=== PATIENT | female | born 1935 | race Caucasian/White ===

== ENCOUNTER 2018-05-12 11:40 | Inpatient (IN) | payer MEDICARE, OTHER ==
[2018-05-12 12:48] LABS: Hemoglobin 13.6 g/dL (12.0-16.0); Mean Corpuscular HGB CONC 32.9 g/dL (32.0-36.0); Mean Corpuscular Hemoglobin 35.4 pg (27.0-31.0); Platelet Count 333 thou/uL (130-400); Red Blood Cell (RBC) Count 3.83 mill/uL (4.20-5.40); White Blood Cell (WBC) Count 9.3 thou/uL (4.8-10.8)
--- NOTE | 2018-05-12 12:55 | RAD ---
CHEST 1 VIEW: HISTORY: An 83-year-old female with a history of cough and hypotension, chest congestion, low O2 saturation. FINDINGS: There appears to be some minimal dextrocardia suggesting some right-sided volume loss. Abnormal opac ity changes are noted over the right mid and lower chest, probably a combination of pleural and paren chymal opacity. Small left pleural effusion. Heart size is borderline. The left lung demonstrates no significant acute process in the mid and upper left chest. IMPRESSION: Fairly extensive abnormal opacity changes in the right chest with what appears to be some associated volume loss raising concern for pneumonia and/or atelectasis. Left pleural effusion changes with jann e minimal horizontal parenchymal changes in the left lower lobe. The upper lung zones appear clear. Consider followup chest CT scan for further assessment. POS: [place]
[2018-05-12 13:03] LABS: ALT (SGPT) 10 U/L (8-55); AST (SGOT) 14 U/L (5-34); Albumin 3.3 g/dL (3.4-4.8); Alkaline Phosphatase 87 U/L (40-150); Anion Gap 18 mmol/L (10-20); BUN (Urea Nitrogen) 12 mg/dL (9.8-20.1); Bilirubin, Total 1.1 mg/dL (0.2-1.2); Calc. Creatinine Clearance 0 mL/min (70-130); Carbon Dioxide 18 mmol/L (23-31); Chloride 105 mmol/L (98-107); Estimated GFR-MDRD 67; Globulin 3.4 g/dL (2.4-3.5); Glucose 151 mg/dL (83-110); Lipase 7 U/L (8-78); Potassium 3.4 mmol/L (3.5-5.1); Protein, Total 6.7 g/dL (6.0-8.3); Sodium 138 mmol/L (136-145)
[2018-05-12] MEDS ORDERED: Ondansetron PF 4 MG/2 ML Vial ONE (13:09)
[2018-05-12 13:13] LABS: Band 4 % (5-11); Lymphocytes 6 % (21-51); MDiff Complete? YES; Monocytes 6 % (0-10); Neutrophil 83 % (42-75); Platelet Morphology Comment Appears Adequate; Reactive Lymphocytes 1 % (0-10)
[2018-05-12] MEDS ORDERED: Diltiazem 125 MG/25 ML ONE (14:38)
--- NOTE | 2018-05-12 15:06 | CT ---
CT ANGIOGRAM CHEST WITH 3D RENDERING: HISTORY: An 83-year-old female with a history of nausea, vomiting, cough, and congestion. COMPARISON: Prior chest CT scan from 01/06/2012. FINDINGS: No central pulmonary artery thrombosis. Some of the more peripheral branches, particularly in the lo wer lobes, are somewhat less than optimally imaged, but no convincing CT evidence for acute pulmonary embolism. There is very extensive, diffuse increase in the pericardial fat, including the intraatri al septum, but with fat measuring approximately 1.8 cm overlying the right atrium and approximately 2 .4 cm thick pericardial fat at the level of the ascending aorta. There is some minimal pericardial f luid noted, up to 1 cm in thickness. There are increased interstitial and reticulonodular parenchyma l changes scattered in the right upper lobe with what is probably some minimal atelectasis. There is moderate atelectasis of the right middle lobe with some pleural-based parenchymal changes. Heteroge neous similar changes are noted in both lung bases, which has more of a chronic appearance. Small le ft pleural effusion, decreased in size from the prior 2011 study. Improved left lower lobe parenchym al changes when compared to the prior study. No evidence for aortic aneurysm. Extensive three-vesse l coronary artery calcific disease. Diffuse bony demineralization. Status post cholecystectomy. No dularity of both adrenal glands, nonspecific but possibly bilateral adrenal adenomas. Fatty replacem ent of the pancreas. Small, nodular polysplenia. When compared to the prior 01/06/2012 study, the a mount of pericardial fat has definitely increased from that time, and the heart has a more dextrocard iac appearance on today's study than on that prior exam. IMPRESSION: 1. No convincing CT evidence for acute pulmonary embolism. 2. Very prominent thickened diffuse pericardial fat, completely surrounding the heart, showing defin ite worsening from 01/06/2012. 3. Pericardial effusion, up to 1 cm in maximal thickness. 4. Small left pleural effusion. 5. Patchy nonspecific parenchymal changes, including the right upper lobe, right middle lobe, right lower lobe, and left lower lobe, which could well represent some atypical pneumonia or pneumonitis. I feel some of the changes in the right middle lobe and even portions of the right upper lobe represe nt some compressive atelectasis from the enlargement of the cardiac silhouette and the dextrocardia p ositioning of the heart. 6. Extensive three-vessel coronary artery calcific disease. 7. Evidence for polysplenia. 8. Fatty replaced pancreas. 9. Multiple small, low attenuation nodules within both right and left adrenal glands, nonspecific bu t possibly multiple adenomas. 10. Old granulomatous disease within the right lung. 11. Small, nonobstructing left renal calculi. 12. Indeterminate, 0.6 cm in diameter, exophytic mass off the upper pole of the right kidney, t oo small to characterize on this study. 13. Other findings as above. POS: [place]
[2018-05-12] MEDS ORDERED: Potassium Chloride 20 MEQ TAB ONE (16:32)
[2018-05-12 16:58] LABS: Lactic Acid 1.8 mmol/L (0.5-2.2)
[2018-05-12] MEDS ORDERED: Iopamidol 370 76% 100 ML VIAL ONE (17:03)
[2018-05-12 17:05] LABS: Troponin I 0.069 ng/mL (< 0.028)
[2018-05-12 18:37] LABS: Bilirubin Small (Negative); Blood, Urine Moderate (Negative); Clarity CLEAR (Clear); Glucose, Urine (Dipstick) Negative (Negative); Leukocyte Negative (Negative); Nitrite Negative (Negative); Protein, Urine (Dipstick) Trace mg/dL (Neg-Trace)
[2018-05-12 18:39] LABS: Bacteria/HPF None Seen HPF (None Seen); Squamous Epithelial 0-3 HPF (0-3); WBC/HPF 0-3 HPF (0-3)
[2018-05-12 18:42] LABS: Pathc Cast-AUWi Flag 2.76 (0-2.49)
[2018-05-12 18:43] LABS: Hyaline Casts/LPF 0-3 HYALINE CAST LPF (0-3 Hyaline); Manual Microscopic Reviewed? No Path Casts Seen; Specific Gravity, Urine Greater than 1.060 (1.002-1.036)
[2018-05-12 19:18] LABS: Troponin I 0.071 ng/mL (< 0.028)
[2018-05-12] MEDS ORDERED: Diltiazem HCl 125 MG, Admixture Fee 1 EACH in Sodium Chloride 0.9% 100 ML IVPB SCH (21:30)
[2018-05-12] MEDS ORDERED: Sodium Chloride 0.9% 1,000 ML IV SCH (21:30)
--- NOTE | 2018-05-12 22:56 | HP ---
CHIEF COMPLAINT: Cough and low blood pressure. HISTORY OF PRESENT ILLNESS: The patient is an 83-year-old female, who checked her blood pressure at home, and it was read in the 80s systolic, and she went to the primary care doctor, who checked her blood pressure, it was 95/64, pulse was 97, and pulse oximetry was 94%. Physical examination at the doctor's office revealed some rattling according to the patient in her chest, and she was sent out to the emergency room for further evaluation. Apparently, she noticed some new onset of cough approximately a week ago. She did not really have any fever or chills, but from [id number], she was able to bring some yellowish phlegm. Apparently recently she went to [place], where her kids live, and she had some contact with a sick people out there. Her primary care physician is Dr. Maldonado and licensed psychologist manager, Dr. Seo. [id number] is her son, Francisco Blunt. PAST MEDICAL HISTORY: 1. Diverticulosis. 2. Atrial fibrillation, chronic. 3. Partial small-bowel obstruction. 4. Breast cancer of the left side. PAST SURGICAL HISTORY: 1. Hemicolectomy with re-anastomosis in 2009. 2. Radical mastectomy on the left. 3. Cholecystectomy. 4. Appendectomy. 5. Hysterectomy. 6. Splenectomy. 7. Colonoscopy. ALLERGIES: NONE. MEDICATIONS: 1. Xarelto 20 mg once a day. 2. Cardizem 120 mg once a day. 3. Losartan 50 mg once a day. FAMILY HISTORY: Mother of car accident at the age of 75 and father had CVA and , when he was 62. SOCIAL HISTORY: She used to smoke, but quit long time ago. She does not drink any alcohol recently and does not use any illicit drugs. ALLERGIES: NONE. REVIEW OF SYSTEMS: Denies fever and chills. Denies headaches, vision, or hearing change. Denies rash. Denies chest pain or palpitations. Denies incontinence. Has some congestion and cough. Denies syncope. Denies anxiety or depression. PHYSICAL EXAMINATION: VITAL SIGNS: Her blood pressure is 115/67, pulse is 101, pulse oximetry is 97%, and respiratory rate is 25. HEENT: Her head is atraumatic and normocephalic. Eyes are PERRLA. Sclerae are nonicteric. Oral mucosa is moist. NECK: Supple. No JVDs. LUNGS: Crackles at the right base. No wheezing. HEART: S1 and S2. Tachycardic, irregularly irregular. No S3. No S4. ABDOMEN: Soft, nontender, and nondistended. Bowel sounds are present. No organomegaly. EXTREMITIES: No clubbing, cyanosis, or edema. NEUROLOGICAL: Examination she is alert and oriented x4. There are no any motor or sensory deficits. Cranial nerves are intact. LABORATORY DATA: Labs showed a white count of 9.3, hemoglobin of 13.6, hematocrit 41.3, and platelet count 333,000. Chemistry shows sodium of 138, potassium 3.4, chloride 105, CO2 of 18, BUN of 12, creatinine 0.81, glucose 151, lactic acid 3.2, troponin 0.092, albumin 3.3, and lipase 67. DIAGNOSTIC STUDIES: Chest x-ray showed significant opacification of the right side of the chest, especially in the middle and the lower lobe. CTA of the chest showed no PE, significant worsening of the diffuse pericardial fat completely surrounding the heart, pericardial effusion up to 1 cm in maximal thickness, small left pleural effusion, patchy nonspecific parenchymal changes including the right upper lobe, right middle lobe, right lower lobe, and the left lower lobe, most likely atypical pneumonia or pneumonitis versus atelectasis. 1. Extensive three-vessel coronary artery calcification evidence. 2. Evidence of polysplenia. 3. Multiple small low-attenuation nodules within both right and left adrenal glands, nonspecific, most likely multiple adenomas. 4. Old granulomatous disease within the right lung. 5. Small non-obstructing left renal calculi. 6. Indeterminate 0.6 cm in diameter exophytic lesion in the upper pole of the right kidney, too small to characterize, will be characterized on this study. EKG showed this was personally reviewed by me. She is in atrial fibrillation with a ventricular rate of 140 beats per minute with some ischemic changes in the precordial leads, affecting ST-segment and T waves. Her QRS is very high and that is most likely reflecting changes seen on the CT of the chest, was going on with her heart. IMPRESSION: 1. New onset cough with clinical findings by auscultation is suggestive of infectious process in the right lung. We are going to start her on levofloxacin. 2. Atrial fibrillation, chronic with rapid ventricular response. She received two doses of 10 mg IV push of Cardizem, but her heart rate went down, then went up, and we had to start her on Cardizem drip 5 mg/hour. 3. Hypokalemia, replaced with 40 of KCl in the emergency room. 4. Elevated troponin at 0.092. We will have additional two sets of troponin I to follow up. Will hold her Xarelto since there is a severe interaction between Xarelto and Cardizem. I will continue her p.o. Cardizem tomorrow morning, and we will continue her Cardizem drip for now. We will get cardiology consultation, pulmonary consultation, so plan is as mentioned above, admission to telemetry floor. CONDITION: Fair. ACTIVITY: Bedrest and bathroom privileges. DIET: Heart healthy, IV Hep-Lock, Cardizem drip 5 mg/hour. Cardiology and pulmonary consultations with Dr. Ariza and Dr. Gutierrez respectively. Check her serial CBC and BMP and continue levofloxacin same antibiotic she was started in the emergency room and get echocardiogram since the CT of the chest shows significant changes of her heart. Also, she will need additional studies on her kidneys since there was some suspicion that maybe there was some growth on one of her kidneys. Job ID: [id number]
[2018-05-13] MEDS: Diltiazem HCl 125 MG, Admixture Fee 1 EACH in Sodium Chloride 0.9% 100 ML IVPB SCH ×2 (04:52→17:16)
[2018-05-13] MEDS: Sodium Chloride 0.9% 1,000 ML IV SCH ×3 (04:53→18:15)
[2018-05-13 05:03] LABS: Anion Gap 14 mmol/L (10-20); BUN (Urea Nitrogen) 10 mg/dL (9.8-20.1); Calc. Creatinine Clearance 73 mL/min (70-130); Calcium 9.2 mg/dL (7.8-10.44); Carbon Dioxide 22 mmol/L (23-31); Chloride 107 mmol/L (98-107); Estimated GFR-MDRD 90; Glucose 106 mg/dL (83-110); Potassium 3.6 mmol/L (3.5-5.1); Sodium 139 mmol/L (136-145)
[2018-05-13 08:59] LABS: #Eosinphils 0.1 thou/uL (0.0-0.7); #Lymphocytes 1.5 thou/uL (1.20-3.40); #Monocytes 2.4 thou/uL (0.11-0.59); #Neutrophils 12.7 thou/uL (1.40-6.50); %Basophils 0.3 % (0.0-1.0); %Eosinophils 0.6 % (0.0-10.0); %Monocytes 14.5 % (0.0-10.0); %Neutrophils 75.7 % (42.0-75.0); Hemoglobin 12.4 g/dL (12.0-16.0); Mean Corpuscular HGB CONC 32.7 g/dL (32.0-36.0); Mean Corpuscular Hemoglobin 34.5 pg (27.0-31.0); Mean Platelet Volume 7.3 fL (7.4-10.4); Platelet Count 273 thou/uL (130-400); Red Blood Cell (RBC) Count 3.58 mill/uL (4.20-5.40); White Blood Cell (WBC) Count 16.8 thou/uL (4.8-10.8)
--- NOTE | 2018-05-13 09:56 | CON ---
DATE OF CONSULTATION: 05/13/2018 CONSUTING PHYSICIAN: Jesus Mckeon MD from the [facility]. REASON FOR CONSULTATION: Pneumonia. The following encompassed 50 minutes of the time, of that time, greater than 50% was spent with the patient and/or the patient's unit in the hospital. HISTORY OF PRESENT ILLNESS: Ms. Blunt is a pleasant 83-year-old female, who presented yesterday from her primary care doctor's office, where she was found to be slightly hypotensive and hypoxic. Workup in the emergency room demonstrated a right-sided pneumonia on CT scan. She states she has been coughing over the last several days and bring up productive sputum. She has also had a subjective fever. She states that she feels better today compared to yesterday. PAST MEDICAL HISTORY: 1. Diverticulitis/diverticulosis. 2. Atrial fibrillation, which is chronic. 3. Small bowel obstructions for breast cancer. 4. Hypertension. PAST SURGICAL HISTORY: 1. Hemicolectomy with reanastomosis. 2. Left radical mastectomy. 3. Cholecystectomy. 4. Appendectomy. 5. Hysterectomy. 6. Splenectomy. 7. Colonoscopy. MEDICATIONS: Prior to admission; 1. Xarelto 20 mg daily. 2. Cardizem 120 mg daily. 3. Losartan 50 mg daily. FAMILY MEDICAL HISTORY: Mother of a car accident at age 75. Father had a stroke and at age 62. SOCIAL HISTORY: The patient quit smoking about 12 years ago when her . She does not drink alcohol. Does not use illicit drugs. ALLERGIES: NONE. REVIEW OF SYSTEMS: She has had some subjective fever and chills. No nausea or vomiting. No hematemesis, melena, or hematochezia. No hematuria. No dysuria. Remainder of 12-point review of systems is negative. PHYSICAL EXAMINATION: VITAL SIGNS: Temperature 98.1, pulse 126, respiratory rate 20, and blood pressure 111/71. She is currently on a Cardizem drip at 12.5 mg/hour. GENERAL: She is lying in bed. She is in no acute distress. HEENT: Pupils are reactive. Sclerae are icteric. Oropharynx is clear. NECK: Without adenopathy or JVD. LUNGS: She has some inspiratory crackles in the right base. Left side clear. CARDIAC: S1 and S2, irregularly irregular without murmur. ABDOMEN: Soft, nontender to palpation. EXTREMITIES: No clubbing, cyanosis, or edema. LABORATORY DATA: White blood cell count 9.3, hematocrit 41.3, and platelet count 333 with 84% neutrophils, 4% bands. Sodium 139, potassium 3.6, chloride 107, CO2 of 22, BUN 10, creatinine 0.6, and glucose 106. Troponin 0.07. IMAGING DATA: CT and chest x-ray were personally reviewed by myself. ASSESSMENT: 1. Right lower lobe pneumonia. 2. Extensive cardiomegaly with right-sided dilatation on CT scan. She also has a slight pericardial effusion and an extensive pericardial fat. RECOMMENDATIONS: 1. I agree with antibiotic regimen, continue Levaquin therapy as already started. 2. Rate control of atrial fibrillation. 3. Oxygen therapy as needed. Thank you for the referral. I will be happy to follow with you. Job ID: [id number]
[2018-05-14] MEDS: Sodium Chloride 0.9% 1,000 ML IV SCH ×2 (01:09→07:00)
[2018-05-14] MEDS: Diltiazem HCl 125 MG, Admixture Fee 1 EACH in Sodium Chloride 0.9% 100 ML IVPB SCH ×3 (02:45→23:57)
[2018-05-14 05:27] LABS: #Lymphocytes 1.4 thou/uL (1.20-3.40); #Monocytes 1.4 thou/uL (0.11-0.59); #Neutrophils 11.1 thou/uL (1.40-6.50); %Eosinophils 0.4 % (0.0-10.0); %Lymphocytes 9.9 % (21.0-51.0); %Monocytes 9.7 % (0.0-10.0); Hemoglobin 10.7 g/dL (12.0-16.0); Mean Corpuscular HGB CONC 32.6 g/dL (32.0-36.0); Mean Corpuscular Hemoglobin 34.9 pg (27.0-31.0); Mean Platelet Volume 6.4 fL (7.4-10.4); Platelet Count 320 thou/uL (130-400); RBC Distribution Width 12.9 % (11.5-14.5); Red Blood Cell (RBC) Count 3.06 mill/uL (4.20-5.40); White Blood Cell (WBC) Count 13.9 thou/uL (4.8-10.8)
[2018-05-14 05:45] LABS: Anion Gap 13 mmol/L (10-20); BUN (Urea Nitrogen) 9 mg/dL (9.8-20.1); Calc. Creatinine Clearance 74 mL/min (70-130); Carbon Dioxide 18 mmol/L (23-31); Chloride 112 mmol/L (98-107); Estimated GFR-MDRD Greater than 90; Glucose 106 mg/dL (83-110); Potassium 3.2 mmol/L (3.5-5.1); Sodium 140 mmol/L (136-145)
[2018-05-14] MEDS ORDERED: guaiFENesin/Dextromethorphan 10 ML UDCUP PO PRN (10:46)
[2018-05-14] MEDS ORDERED: Mag-Al 1200 mg/1200 mg/30 ML UDCUP PO PRN (10:46)
[2018-05-14] MEDS ORDERED: Potassium Chloride 20 MEQ TAB PO SCH (11:00)
[2018-05-14] MEDS ORDERED: Digoxin 0.5 MG/2 ML AMP SLOW IVP SCH (11:00)
--- NOTE | 2018-05-14 11:53 | PRG ---
DATE OF SERVICE: 05/14/2018 SUBJECTIVE: The patient is doing somewhat better than yesterday. She is complaining of cough and some abdominal indigestion. OBJECTIVE: VITAL SIGNS: Her temperature is 97.3, pulse 106, O2 saturation 94% on 2 L, blood pressure 147/78. HEENT: Unremarkable. NECK: No JVD. LUNGS: Few crackles at the bases. CARDIAC: S1, S2. Regular. ABDOMEN: Soft. EXTREMITIES: No edema. LABORATORY DATA: White blood cell count 13.9, hematocrit 32.8, and platelet count 320. Sodium 140, potassium 3.2, chloride 112, CO2 18, BUN 9, creatinine 0.6, glucose 106. ASSESSMENT: 1. Right lower lobe pneumonia. 2. Extensive cardiomegaly with small pericardial effusion by CT scan. RECOMMENDATIONS: She is continuing IV antibiotics. She may end up needing some diuresis. I will give her some antitussive medications she can use as needed. Job ID: [id number]
[2018-05-14] MEDS ORDERED: Non-Formulary Item 1 EACH (Rivaroxaban [Xarelto] 20 MG) PO SCH (21:00)
[2018-05-14] MEDS: Guaifenesin DM 100-10/5 ML UDCUP PO PRN (21:24)
[2018-05-14] MEDS: Rivaroxaban 10 MG TAB PO SCH (21:24)
[2018-05-15] MEDS ORDERED: Digoxin 0.5 MG/2 ML AMP SLOW IVP SCH ×2 (07:30→13:30)
[2018-05-15] MEDS: Guaifenesin DM 100-10/5 ML UDCUP PO PRN ×3 (08:18→21:41)
[2018-05-15] MEDS: Losartan 25 MG TAB PO SCH (08:21)
[2018-05-15] MEDS ORDERED: Furosemide 40 MG/4 ML VIAL SLOW IVP SCH (09:45)
[2018-05-15] MEDS ORDERED: Potassium Chloride 20 MEQ TAB PO SCH (09:45)
[2018-05-15 10:09] LABS: Hemoglobin 11.4 g/dL (12.0-16.0); Mean Corpuscular HGB CONC 32.6 g/dL (32.0-36.0); Mean Corpuscular Hemoglobin 34.8 pg (27.0-31.0); Mean Platelet Volume 6.5 fL (7.4-10.4); Platelet Count 342 thou/uL (130-400); Red Blood Cell (RBC) Count 3.29 mill/uL (4.20-5.40); White Blood Cell (WBC) Count 15.5 thou/uL (4.8-10.8)
[2018-05-15 10:26] LABS: Anion Gap 11 mmol/L (10-20); BUN (Urea Nitrogen) 6 mg/dL (9.8-20.1); Calc. Creatinine Clearance 83 mL/min (70-130); Calcium 9.8 mg/dL (7.8-10.44); Carbon Dioxide 25 mmol/L (23-31); Chloride 108 mmol/L (98-107); Estimated GFR-MDRD Greater than 90; Glucose 134 mg/dL (83-110); Magnesium 1.6 mg/dL (1.6-2.6); Potassium 3.3 mmol/L (3.5-5.1); Sodium 141 mmol/L (136-145)
--- NOTE | 2018-05-15 10:41 | PRG ---
DATE OF SERVICE: 05/15/2018 SUBJECTIVE: The patient still feels rather lousy. She has a cough. OBJECTIVE: VITAL SIGNS: Temperature 97.6, pulse 98, respirations 18, O2 saturation 94% on 3 L, and blood pressure 171/72. HEENT: Unremarkable. NECK: No JVD. LUNGS: Coarse breath sounds. CARDIAC: S1 and S2. Regular. ABDOMEN: Soft. EXTREMITIES: No edema. LABORATORY DATA: White blood cell count 15, hematocrit 35.1, and platelet count 242. Sodium 140 and potassium 3.2. ASSESSMENT: 1. Right lower lobe pneumonia. 2. Cardiomegaly with decreased ejection fraction. PLAN: 1. Continue IV antibiotics. 2. Up into a chair as tolerated. 3. I will ask PT to see her. Job ID: [id number]
[2018-05-15 11:29] LABS: Band 5 % (5-11); Lymphocytes 4 % (21-51); MDiff Complete? YES; Monocytes 4 % (0-10); Neutrophil 85 % (42-75); RBC Morphology Normal; Reactive Lymphocytes 2 % (0-10)
--- NOTE | 2018-05-15 13:28 | PRG ---
DATE OF SERVICE: 05/15/2018 SUBJECTIVE: The patient is seen and examined at the bedside. She seems to be more short of breath. She does not have any chest pain. There were no any unexpected events overnight. OBJECTIVE: VITAL SIGNS: Blood pressure is 107/72, pulse is 98, temperature is 97.6, respiratory rate is 18, O2 saturation is 94% on 3 L by nasal cannula. HEENT: Her head is atraumatic and normocephalic. Sclerae are nonicteric. Oral mucosa is moist. LUNGS: Bilateral rales and crackles present at both bases. HEART: S1 and S2. Irregularly irregular. No S3. No S4. ABDOMEN: Soft, nontender, and nondistended. EXTREMITIES: 1+ peripheral edema on both lower and upper extremities. NEUROLOGIC: She is alert and oriented x4. There are no any motor deficits. Cranial nerves are intact. LABORATORY DATA: Labs showed white count of 15.5, hemoglobin of 11.4, hematocrit 35.1, platelet count is 342. Sodium of 141, potassium 3.3, chloride 108, CO2 of 25, BUN 6, creatinine 0.59, glucose 134, calcium 9.8, and magnesium 1.6. Echocardiogram showed LVEF estimated at 65%, probably diastolic dysfunction. Difficult to assess since rhythm is irregular. Normal right ventricular size and function. The left atrium was [id number] dilated. The right atrium was mildly enlarged. There were mild mitral regurgitation and trace tricuspid regurgitation. IMPRESSION: 1. Right lower lobe pneumonia. 2. Diastolic congestive heart failure, [id number]. 3. Atrial fibrillation with rapid ventricular response. 4. Hypokalemia. We will replace. 5. Elevated troponin, probably just a demand ischemia. DISCUSSION: I am going to start her on Lasix 40 mg now, then twice a day since she received a lot of IV fluids and there is some diastolic dysfunction. We will replace her with KCl of 40 mEq. We will give her additional dose of digoxin. Yesterday, she received 0.25 mg of digoxin IV push. She slowed down to the 90s, but her rate went up to 120s to 130s often and will have additional 0.25 mg of digoxin this morning and will have Dr. Denise for Cardiology consultation. 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 The CT of the abdomen and pelvis showed indeterminate 0.6 cm in diameter exophytic lesion in the upper pole of the right kidney. It was too small to characterize, and this will need to be followed on outpatient basis. Also, there were small nonobstructing left renal calculi. Job ID: [id number]
[2018-05-15] MEDS: Diltiazem HCl 125 MG, Admixture Fee 1 EACH in Sodium Chloride 0.9% 100 ML IVPB SCH ×2 (14:01→21:42)
[2018-05-15] MEDS: Furosemide 40 MG/4 ML VIAL SLOW IVP SCH (14:16)
[2018-05-15] MEDS ORDERED: Ondansetron ODT 4 MG TAB PO SCH ×2 (14:45)
--- NOTE | 2018-05-15 17:18 | RAD ---
2 VIEWS ABDOMEN: Date: 05/15/18 COMPARISON: 01/13/12. HISTORY: Abdominal distention. FINDINGS: Supine and upright views of abdomen show air-filled loops of bowel throughout the abdomen. The majori ty of these appear to be colon. However, there are likely a few air-filled loops of small bowel. No f ree air is seen on upright examination. An anastomotic staple line is seen in the rectal region. IMPRESSION: Air-filled loops of bowel may represent large and small bowel. This may be secondary to an ileus or i ncomplete bowel obstruction. POS: [facility]
--- NOTE | 2018-05-15 20:28 | CON ---
DATE OF CONSULTATION: HISTORY OF PRESENT ILLNESS: Va Blunt is a pleasant 83-year-old white female , long-standing patient of Dr. Seo. She has had chronic atrial fibrillation since December 2010. She has had an echocardiogram, at that time which revealed ejection fraction of 55% to 60%. It was also felt that there was lipomatous hypertrophy of the atrial septum. She has continued to be followed intermittently in the office, and her rate is controlled with Cardizem 180 mg daily and anticoagulated with Xarelto 20 mg daily. She now is admitted with increased shortness of breath and cough over the last week. It also has been noted that her blood pressure was low at home in the 80s systolic. She went to her primary doctor and that was in the 90s, but was sent to the emergency room for further evaluation. Chest x-ray shows right-sided pneumonia , and she is admitted for further evaluation. She denies any chest pain or palpitations. PAST MEDICAL HISTORY: Chronic atrial fibrillation, partial small-bowel obstruction, breast cancer on the left, and diverticulosis. PAST SURGICAL HISTORY: Hemicolectomy with reanastomosis in 2009, radical mastectomy on the left, hysterectomy, appendectomy, cholecystectomy, and splenectomy. MEDICATIONS: At home include: 1. Cardizem 180 mg daily. 2. Xarelto 20 mg q.p.m. 3. Losartan 50 mg daily. ALLERGIES: NONE. FAMILY HISTORY: Negative for coronary artery disease. SOCIAL HISTORY: The patient smoked many years ago. She does not drink alcohol. REVIEW OF SYSTEMS: A 12-point review of systems is otherwise unremarkable. Specifically, she denies any fever or chills at home. PHYSICAL EXAMINATION: VITAL SIGNS: Blood pressure 107/72, pulse of 98 and irregularly irregular. HEENT: PERRL. NECK: Supple. CHEST: Reveals expiratory wheezing, greater on the right than the left. CARDIOVASCULAR: S1 and S2 normal without any S3, S4, or murmurs. ABDOMEN: High-pitched bowel sounds with somewhat distended abdomen. No tenderness. EXTREMITIES: Revealed no clubbing, cyanosis, or edema. NEUROLOGIC: Grossly intact. SKIN: Warm and dry. LABORATORY DATA: EKG revealed atrial fibrillation with rapid ventricular response of 140 per minute, nonspecific ST and T-wave changes. Chest x-ray revealed right lung pneumonia. Chest CTA revealed no evidence of pulmonary emboli. She does have extensive 3-vessel coronary artery calcification, small left pleural effusion, pericardial effusion. On echocardiogram, there was no mention of pericardial effusion. Ejection fraction is 65% with mild left atrial enlargement, mild right atrial enlargement, mild mitral regurgitation, aortic valvular leaflets are thickened, and trace tricuspid regurgitation. Hemoglobin 11.4, hematocrit 35.1, white count 15,500, platelets 342,000. INR 3.5. Sodium 141, potassium 3.3, chloride 108, carbon dioxide 25, BUN 6, creatinine 0.59. Troponin I 0.071. IMPRESSION: 1. Right lung pneumonia. 2. No significant pericardial effusion seen on echo. 3. 3-vessel coronary artery disease with calcifications seen on chest CTA. 4. Chronic atrial fibrillation with increased rate with her current infectious illness. 5. History of left breast cancer. 6. Demand ischemia. PLAN: The patient will be continued on her p.o. Cardizem 180 mg daily. She has been given digoxin 0.25 mg IV twice and a third dose to be given at this time. The intravenous Cardizem drip will be gradually tapered. Job ID: [id number] [facility]
[2018-05-15] MEDS: Rivaroxaban 10 MG TAB PO SCH (21:40)
--- NOTE | 2018-05-15 22:59 | CON ---
DATE OF CONSULTATION: HISTORY OF PRESENT ILLNESS: The patient is an 83-year-old female who presented with complaints of cough, shortness of breath, and a diagnosis of pneumonia. She also presented with atrial fibrillation with rapid ventricular response. She was noted to have increasing abdominal distention, although she denies any pain. She has had some nausea, but no vomiting today. Her bowel movements are typically loose ever since bowel resection and she reports she has continued to have loose stools. PAST MEDICAL HISTORY: Includes breast cancer and atrial fibrillation. PAST SURGICAL HISTORY: Includes colon and small bowel resection, mastectomy, cholecystectomy, appendectomy, hysterectomy, splenectomy, and colonoscopy in 2010. ALLERGIES: NO KNOWN MEDICAL ALLERGIES. MEDICATIONS: Include: 1. Xarelto 20 mg p.o. daily. 2. Cardizem 120 mg p.o. daily. 3. Losartan 50 mg p.o. daily. FAMILY HISTORY: Negative for GI or liver disease. SOCIAL HISTORY: She does not smoke or drink. REVIEW OF SYSTEMS: CONSTITUTIONAL: Positive fever. Negative for weight loss. EYES: No blurred vision or double vision. ENT: No sore throat or earaches. CARDIOVASCULAR: No chest pain or palpitation. PULMONARY: Positive for shortness of breath. Positive for cough. GI: See above. : No hematuria or dysuria. MUSCULOSKELETAL: No joint pain or weakness. SKIN: No rashes. PHYSICAL EXAMINATION: GENERAL: Shows an elderly white female in no acute distress. VITAL SIGNS: Temperature is 97.6, pulse 81, respiratory rate 20, blood pressure 136/52. HEENT: Unremarkable. NECK: Supple. CHEST: Clear. CARDIOVASCULAR: Regular rate and rhythm without murmurs or gallops. ABDOMEN: Soft, nontender without organomegaly or masses. Bowel sounds are present, but hypoactive. RECTAL: Deferred. EXTREMITIES: Normal. NEUROLOGIC: Nonfocal. LABORATORY DATA: Shows white blood cell count of 15.5, hemoglobin 11.4, hematocrit of 35.1 with MCV of 107. Chemistry shows potassium 3.3, glucose 134. Urine shows 11-20 rbc's. ASSESSMENT: 1. Abdominal distention and hypoactive bowel sounds - the patient may be developing an ileus. 2. Right lower lobe pneumonia. 3. Congestive heart failure. 4. Atrial fibrillation. RECOMMENDATIONS: 1. Abdominal films. 2. Continue clear liquids at this point. 3. N.p.o. if vomiting. Job ID: [id number]
[2018-05-16] MEDS ORDERED: Ondansetron ODT 4 MG TAB PO PRN (01:51)
[2018-05-16] MEDS: Furosemide 40 MG/4 ML VIAL SLOW IVP SCH ×2 (06:19→14:13)
[2018-05-16] MEDS: Guaifenesin DM 100-10/5 ML UDCUP PO PRN (06:19)
[2018-05-16] MEDS: Losartan 25 MG TAB PO SCH (09:10)
--- NOTE | 2018-05-16 10:52 | PRG ---
DATE OF SERVICE: 05/16/2018 SUBJECTIVE: The patient is feeling lousy. She has developed ileus and is having some nausea and vomiting. OBJECTIVE: VITAL SIGNS: Temperature 97.9, pulse 80, respirations 16, O2 saturation is 96% on 3 L, and blood pressure 119/56. HEENT: Unremarkable. NECK: No JVD. CHEST: A few crackles in the bases. CARDIAC: S1, S2. Regular. ABDOMEN: Distended, but she does have bowel sounds. EXTREMITIES: No edema. ASSESSMENT: 1. Pneumonia. 2. Ileus. 3. Cardiomyopathy with decreased ejection fraction. PLAN: 1. Continue IV antibiotics. 2. Bowel rest as needed. 3. Hopefully home once bowel function was recovered. Job ID: [id number]
--- NOTE | 2018-05-16 11:45 | PQF ---
CLINICAL DOCUMENTATION IMPROVEMENT CLARIFICATION FORM: ICD-10 Updated PLEASE DO AN ADDENDUM TO THE PROGRESS NOTE WITH ANY DOCUMENTATION UPDATES OR ADDITIONS AND CARRY THROUGH TO DC SUMMARY. THANK YOU. DATE: 05/16/2018 ATTN: Dr. Ordonez Please exercise your independent, professional judgment in responding to the clarification form. Clinical indicators are provided on the bottom of this form for your review Please check appropriate box(s): [ ] Aspiration Pneumonia [ ] Pneumonia secondary to [ ] Simple Pneumonia (community acquired - nosocomial) [ x] Pneumonia of unknown etiology [ ] Other diagnosis [ ] Unable to determine In addition, please specify: Present on Admission (POA): [ x] Yes [ ] No [ ] Unable to determine For continuity of documentation, please document condition throughout progress notes and discharge summary. Thank You. CLINICAL INDICATORS - SIGNS / SYMPTOMS / LABS Pulmonology Consult 05/13 (Matt) Presented yesterday from her primary care doctor's office , where she was found to be slightly hypotensive and hypoxic. She states she has been coughing over the last several days and bring up productive sputum. Right lower lobe pneumonia RISKS: H&P 05/12: 83 yrs old. New onset cough with clinical findings by auscultation is suggestive of infectious process in the r lung. Atrial fibrillation, chronic with RVR. TREATMENT: Order 05/12: IV levaquin 500mg Order 05/15: Resp: O2 to keep sats 92% Thank you, Luana (This form is maintained as a part of the permanent medical record) 2014 [employer]. All Rights Reserved Luana Paz RN, BSN [email or web address] Office: [phone] [facility]ITAL[facility]rodie
[2018-05-16] MEDS ORDERED: Digoxin 0.5 MG/2 ML AMP SLOW IVP SCH (19:15)
[2018-05-16] MEDS: Pantoprazole 40 MG VIAL IVP SCH (19:45)
--- NOTE | 2018-05-16 20:13 | PRG ---
DATE OF SERVICE: 05/16/2018 SUBJECTIVE: Ms. Blunt's nurse and patient herself note that she vomited early this morning, a fair amount of brown liquid. She is not vomiting at all. She feels nauseated, has emesis bag. She has not been out of bed. Her daughters at the bedside and history that she has had some intermittent vomiting for the past several months. She initially thought this was a viral illness. She has been in [facility]. She apparently fractured her foot down there and was going to rehab. When she was there last week, they told her she had some rattles in her chest and subsequently here, she came to the emergency room for cough and shortness of breath, and fever was diagnosed with pneumonia. She has had no bowel movements, except for 2 days ago, she had a small scant loose stool. MEDICATIONS: Include, 1. P.o. diltiazem. 2. Lasix. 3. Guaifenesin. 4. Ipratropium bromide. 5. Levothyroxine. 6. Cozaar. 7. Zofran p.r.n. 8. Xarelto. PHYSICAL EXAMINATION: VITAL SIGNS: Temperature is 98, pulse 87, blood pressure 113/56, O2 saturation 94%. GENERAL: She is resting comfortably in bed. Nurses note she has not been in bed all day. LUNGS: Decreased breath sounds at bases bilaterally. Slight crackle. She has normal respiratory effort. HEART: Irregular rhythm, but rate controlled. ABDOMEN: Protuberant, but soft. There are no overt hernias. Bowel sounds are nonexistent. RECTAL: Small amount of stool, but no impaction. LABORATORY DATA: White count today is 15.5, hemoglobin 11.4, platelet count 342, 65% segs. Sodium 141, potassium 3.3, chloride 108, BUN and creatinine are 6 and 0.59, glucose is 134. Last TSH I see is from 2011. DIAGNOSTIC DATA: Plain film showed marked distention of the small bowel and colon. ASSESSMENT: Ms. Blunt seems to have an ileus, probably associated with her pneumonia and atrial fibrillation, immobility, hypokalemia, and possible electrolyte abnormalities may be contributing. She has no signs of small bowel mesenteric ischemia. No signs of overt acidosis. She is comfortable without pain, but still feels like she may vomit. She has taken very little in by mouth. 1. Atrial fibrillation. 2. Pneumonia. 3. History of small bowel and colon resection for incarcerated hernia in the distant past. 4. Prior history of ulcer disease. RECOMMENDATIONS: 1. Would start PPI for ulcer prophylaxis. She is on anticoagulation, has pneumonia, atrial fibrillation, and she has a history of emesis of dark brown material this morning. She has a stable hemoglobin with low BUN, so GI bleed is unlikely, but she is definitely at risk. 2. Replace the NG tube at this point in time. She has vomited once and feels like she is going to vomit again. 3. She has physical therapist trying to get her out of bed. 4. Her labs will be checked and we will monitor electrolytes, magnesium, phosphorus daily and replace as necessary. 5. We will have the nurse clamp the NG tube after oral antiarrhythmics and other blood pressure medicines, but if the NG tube is standing any longer in a day or 2, these are going to be changed to IV. Would defer this to Cardiology, Internal Medicine. 6. We will continue to follow along with you closely. Job ID: [id number]
[2018-05-16] MEDS: Enoxaparin Sodium 80 MG/0.8 ML SYRINGE SC SCH (21:04)
[2018-05-16] MEDS: Sodium Chloride 0.9% 1,000 ML IV SCH (21:07)
--- NOTE | 2018-05-16 21:37 | PDOC.PN ---
- Subjective Encounter Start Date: 05/16/18 Encounter Start Time: 11:00 Late entry note, patient seen this morning. Spoke with family at the bedside. Patient reported episode emesis. Positive flatus, no BM today. Nausea worsened when gets up to walk. Family notes she is sleepy. Will awaken and and answer questions, declines walking much, wants to rest. - Objective Resuscitation Status - Order Detail: 05/12/18 15:37 Resuscitation Status Routine Resuscitation Status: DNAR: NO Resuscitation Discussed with: pow/patient Vital Signs & Weight: Vital Signs (12 hours) Temp Pulse Pulse Pulse Resp BP BP 05/16/18 21:00 120 H 05/16/18 20:52 97.9 F 125 H 20 05/16/18 16:24 98.3 F 87 18 05/16/18 11:31 97.6 F 88 16 05/16/18 10:10 113 H 111 H 115/64 103/56 L BP BP Pulse Ox Pulse Ox Pulse Ox 05/16/18 21:00 05/16/18 20:52 105/56 L 96 05/16/18 16:24 113/56 L 94 L 05/16/18 11:31 96/64 94 L 05/16/18 10:10 98 98 Weight Weight 158 lb 15.253 oz Most Recent Monitor Data Heart Rate from ECG 92 NIBP 117/70 NIBP BP-Mean 85 Respiration from ECG 19 SpO2 95 I&O: 05/15/18 05/16/18 05/17/18 06:59 06:59 06:59 Intake Total 1057 480 Output Total 850 3200 Balance 207 -2720 Result Diagrams: 05/15/18 09:42 05/15/18 09:42 Phys Exam - Physical Examination Awakens, answers questions, though somewhat sleepy MM dry Neck: supple, full ROM Fair aeration Cardiovascular: irregular Tachycardic Gastrointestinal: non-tender Distention present, bowel sounds hypoactive Trace edema Neurological: non-focal, moves all 4 limbs Psychiatric: A&O x 3 Skin: no rash Dx/Plan (1) Pneumonia Code(s): J18.9 - PNEUMONIA, UNSPECIFIED ORGANISM Status: Acute Qualifiers: Pneumonia type: due to unspecified organism Comment: Community acquired, present on admission. Presently on levaquin. Added bid duonebs scheduled, has q 4 hour available (2) Chronic atrial fibrillation with RVR Code(s): I48.2 - CHRONIC ATRIAL FIBRILLATION Status: Acute Comment: RVR secondary to medical condition. Presently on oral and IV diltiazem. Digoxin d/ c per cardiology. I would favor d/c losartan presently as well to allow titration CCB, also due to interval placement NGT (3) Essential hypertension Code(s): I10 - ESSENTIAL (PRIMARY) HYPERTENSION Status: Acute (4) Hypokalemia Code(s): E87.6 - HYPOKALEMIA Status: Acute Comment: Replete, check AML and check AM Mg (5) Ileus Code(s): K56.7 - ILEUS, UNSPECIFIED Status: Acute Comment: GI note reviewed , appreciated, NGT placed. Regarding meds, will d/c losartan. Oral CCB can be d/c in favor of titration of cardizem gtt pending cardiology recs. Levaquin IV. Subq lovenox now being given instead of po Xarelto from home - Plan * Please see details above. Patient high risk.
[2018-05-16] MEDS ORDERED: Potassium Chloride 40 MEQ in Sodium Chloride 0.9% 250 ML 250 ML IVPB SCH (22:15)
[2018-05-17] MEDS: Diltiazem HCl 125 MG, Admixture Fee 1 EACH in Sodium Chloride 0.9% 100 ML IVPB SCH (00:10)
[2018-05-17 06:45] LABS: #Lymphocytes 0.8 thou/uL (1.20-3.40); #Monocytes 2.3 thou/uL (0.11-0.59); #Neutrophils 15.8 thou/uL (1.40-6.50); %Eosinophils 0.2 % (0.0-10.0); %Lymphocytes 4.1 % (21.0-51.0); %Neutrophils 83.7 % (42.0-75.0); Hemoglobin 11.9 g/dL (12.0-16.0); Mean Corpuscular HGB CONC 32.5 g/dL (32.0-36.0); Mean Corpuscular Hemoglobin 33.9 pg (27.0-31.0); Platelet Count 340 thou/uL (130-400); RBC Distribution Width 14.8 % (11.5-14.5); Red Blood Cell (RBC) Count 3.52 mill/uL (4.20-5.40); White Blood Cell (WBC) Count 18.9 thou/uL (4.8-10.8)
[2018-05-17 06:46] LABS: Digoxin 1.28 ng/mL (0.8-2.0)
[2018-05-17 06:47] LABS: ALT (SGPT) 13 U/L (8-55); AST (SGOT) 14 U/L (5-34); Albumin 2.8 g/dL (3.4-4.8); Alkaline Phosphatase 70 U/L (40-150); BUN (Urea Nitrogen) 12 mg/dL (9.8-20.1); Bilirubin, Total 4.3 mg/dL (0.2-1.2); Calc. Creatinine Clearance 68 mL/min (70-130); Estimated GFR-MDRD 84; Globulin 2.5 g/dL (2.4-3.5); Glucose 113 mg/dL (83-110); Magnesium 1.2 mg/dL (1.6-2.6); Protein, Total 5.3 g/dL (6.0-8.3)
[2018-05-17 06:57] LABS: Anion Gap 11 mmol/L (10-20); Carbon Dioxide 37 mmol/L (23-31); Chloride 97 mmol/L (98-107); Sodium 142 mmol/L (136-145)
[2018-05-17 07:00] LABS: Phosphorus 1.4 mg/dL (2.3-4.7); Potassium 2.9 mmol/L (3.5-5.1)
[2018-05-17] MEDS ORDERED: Potassium Chloride 40 MEQ in Premix Bag 1 BAG IVPB SCH (08:30)
[2018-05-17] MEDS ORDERED: Potassium Phosphate 9 MMOL in Sodium Chloride 0.9% 100 ML IVPB SCH (08:30)
[2018-05-17] MEDS ORDERED: Magnesium Sulfate 2 GM in Sodium Chloride 0.9% 100 ML IVPB SCH (08:30)
[2018-05-17] MEDS ORDERED: Magnesium 2 GM/50 ML 2 GM in Premix Bag 1 BAG IVPB SCH (08:45)
[2018-05-17] MEDS: Enoxaparin Sodium 80 MG/0.8 ML SYRINGE SC SCH ×2 (09:19→21:37)
[2018-05-17] MEDS: Pantoprazole 40 MG VIAL IVP SCH (10:49)
--- NOTE | 2018-05-17 11:31 | RAD ---
KUB: Comparison: 05-15-18 History: Abdominal distention. Ileus versus partial small bowel obstruction. FINDINGS: Anterior views of the abdomen shows air filled loops of large bowel. An NG tube is seen in the stomac h. An anastomotic staple line is seen in the rectum. There are possibly a few enlarged loops of small bowel. No significant change has occurred compared to the prior exam. IMPRESSION: Stable exam. POS: [facility]
--- NOTE | 2018-05-17 11:33 | ULT ---
GALLBLADDER ULTRASOUND: History: 83-year-old female with history of elevated bilirubin. FINDINGS: Liver echogenicity is coarse, evidence for nonspecific abnormal hepatic parenchymal process. Status p ost cholecystectomy. Common bile duct 0.4 cm. No significant intrahepatic ductal dilatation. Visualiz ed pancreas is unremarkable. Several small right renal cortical cysts but no hydronephrosis. No absce ss or abnormal fluid collection. IMPRESSION: Status post cholecystectomy without significant ductal dilatation. Somewhat coarse liver echogenicity , evidence for nonspecific hepatic parenchymal process. No ductal dilatation. Small right renal cyst. POS: OFF
[2018-05-17] MEDS ORDERED: Iopamidol 370 76% 100 ML VIAL ONE (13:17)
[2018-05-17] MEDS: Potassium Chloride 20 MEQ in Premix Bag 1 BAG IVPB SCH ×2 (14:42→21:31)
--- NOTE | 2018-05-17 15:16 | PRG ---
DATE OF SERVICE: SUBJECTIVE: Ms. Blunt denies any pain. NG tube has had 1100 mL out overnight. She is n.p.o. except for ice chips. OBJECTIVE: VITAL SIGNS: Temperature is 97, pulse is 57, blood pressure is 129/58. LUNGS: Clear. HEART: Regular rhythm. ABDOMEN: Soft. Slightly protuberant. No bowel sounds are auscultated. There is no rebound. There is no guarding. LABORATORY DATA: White count has gone up to 18.9, hemoglobin 11.9, and platelet count 340. No bands reported. Segs 83%. Sodium 142, potassium 2.9, chloride 97, bicarb 37, BUN and creatinine are 12 and 0.67, magnesium is 1.4, calcium is 9, phosphorus is 1.2, bilirubin 4.3 and it was 1.1 on admission, protein 5.3, albumin 2.8, AST and ALT 14 and 13, and alkaline phosphatase 70. Sonogram shows slightly coarse liver, but no overt signs of biliary obstruction. Abdominal films today show NG tube in the stomach, less distention of the small bowel. ASSESSMENT: 1. Ileus versus obstruction. She has had a previous small bowel and colon resection secondary to obstruction from her hernia with necrosis. She has no bowel sounds and I suspect this is ileus in the current clinical setting. However, with the worsening white blood cell count despite being on antibiotics, we are going to go ahead and get a CAT scan to make sure there is no overt signs of obstruction. 2. Low magnesium, phosphorus, and potassium. She is to be started on more IV fluids. Electrolytes are being replaced now. These need to be checked again in the morning. 3. 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 I will check a direct and indirect bilirubin tomorrow. 4. The patient is refusing physical therapy. I told her not to do that if she wants to get better. She needs to get up and move around and that will help the ileus. Job ID: [id number]
--- NOTE | 2018-05-17 16:15 | PRG ---
DATE OF SERVICE: 05/17/2018 SUBJECTIVE: The patient is complaining of some abdominal distention. She is scheduled for a CT scan later this afternoon. She has just drank the contrast. She tells me that her breathing is better than it was. OBJECTIVE: HEENT: Unremarkable. NECK: No adenopathy. No JVD. CHEST: Clear to auscultation. CARDIAC: S1 and S2, regular. ABDOMEN: Soft. EXTREMITIES: No edema. ASSESSMENT: 1. Small-bowel obstruction. 2. Pneumonia. PLAN: Await results of CT scan. Continue current antibiotic therapy. Job ID: [id number]
--- NOTE | 2018-05-17 16:37 | PDOC.PN ---
- Subjective Encounter Start Date: 05/17/18 Encounter Start Time: 16:35 Subjective: feels poorly.minimal flatus but no BM -: family at bedside & report symptoms of nausea & loose stools for few weeks -: NGt in place w significant output - Objective Resuscitation Status - Order Detail: 05/12/18 15:37 Resuscitation Status Routine Resuscitation Status: DNAR: NO Resuscitation Discussed with: pow/patient MAR Reviewed: Yes Vital Signs & Weight: Vital Signs (12 hours) Temp Pulse Resp BP Pulse Ox 05/17/18 08:10 96 05/17/18 08:08 57 L 20 96 05/17/18 08:00 97.9 F 115 H 20 129/58 L 94 L Weight Weight 152 lb Most Recent Monitor Data Heart Rate from ECG 92 NIBP 117/70 NIBP BP-Mean 85 Respiration from ECG 19 SpO2 95 I&O: 05/16/18 05/17/18 05/18/18 06:59 06:59 06:59 Intake Total 480 800 Output Total 3200 1300 Balance -2720 -500 Result Diagrams: 05/17/18 06:15 05/17/18 06:15 Additional Labs: Laboratory Tests 05/12/18 05/17/18 12:30 06:15 Total Bilirubin 1.1 4.3 H Phys Exam - Physical Examination ill and tired looking HEENT: PERRLA, sclera anicteric, oral pharynx no lesions NGT Neck: no nodes, no JVD, supple, full ROM Respiratory: no wheezing, no rales, no rhonchi, clear to auscultation bilateral Cardiovascular: no significant murmur, irregular Gastrointestinal: soft, non-tender, no distention no Bowel sounds heard Musculoskeletal: no edema, pulses present Neurological: non-focal, normal sensation, moves all 4 limbs Psychiatric: normal affect, A&O x 3 Skin: no rash Dx/Plan (1) Ileus Code(s): K56.7 - ILEUS, UNSPECIFIED Status: Acute Comment: GI note reviewed , appreciated, NGT placed. PO meds stopped. on BID lovenox,IV CCB drip .CT scan ordered.KUB stable. (2) Hypokalemia Code(s): E87.6 - HYPOKALEMIA Status: Acute Comment: Replete, check AML and check AM Mg (3) Chronic atrial fibrillation with RVR Code(s): I48.2 - CHRONIC ATRIAL FIBRILLATION Status: Acute Comment: RVR secondary to medical condition. Presently on oral and IV diltiazem. Digoxin d/ c per cardiology. 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 Presently on levaquin. Added bid duonebs scheduled, has q 4 hour available (6) Hypomagnesemia Code(s): E83.42 - HYPOMAGNESEMIA Status: Acute (7) Hyperbilirubinemia Code(s): E80.6 - OTHER DISORDERS OF BILIRUBIN METABOLISM Status: Acute Comment: Inga Lema's in setting of acute illness. AST/ALT WNL. RUQ-US shows no CBD dilatation or CBD stones. (8) Essential hypertension Code(s): I10 - ESSENTIAL (PRIMARY) HYPERTENSION Status: Acute - Plan continue antibiotics, respiratory therapy, incentive spirometry, DVT proph w/ SCDs cont meds as outlined above.poor clinically -: high risk for decompensation .may need Sx .CT A/P today -: cont NHT -: replace & recheck lytes.care discussed w family at bedside -: cont CCB drip.Hr better controlled. fully anticoagulated w lovenox. * . Review of Systems - Review of Systems Constitutional: weakness, malaise. negative: fever, chills, sweats, other Respiratory: negative: Cough, Dry, Shortness of Breath, Hemoptysis, SOB with Excertion, Pleuritic Pain, Sputum, Wheezing Cardiovascular: negative: chest pain, palpitations, orthopnea, paroxysmal nocturnal dyspnea, edema, light headedness, other Gastrointestinal: Nausea, Abdominal Pain. negative: Vomiting, Diarrhea, Constipation, Melena, Hematochezia, Other Genitourinary: negative: Dysuria, Frequency, Incontinence, Hematuria, Retention , Other Musculoskeletal: negative: Neck Pain, Shoulder Pain, Arm Pain, Back Pain, Hand Pain, Leg Pain, Foot Pain, Other Skin: negative: Rash, Lesions, Roger, Bruising, Other Neurological: negative: Weakness, Numbness, Incoordination, Change in Speech, Confusion, Seizures, Other - Medications/Allergies Allergies/Adverse Reactions: Allergies Allergy/AdvReac Type Severity Reaction Status Date / Time No Known Drug Allergies Allergy Verified 05/16/18 20:58 Medications: Current Medications Al Hydroxide/Mg Hydroxide (Maalox) 30 ml PO Q6H PRN PRN Reason: Indigestion Albuterol/Ipratropium (Duoneb) 3 ml NEB [id number] PRN PRN Reason: SOB &/or Wheezing Last Admin: 05/15/18 15:20 Dose: 3 ml Albuterol/Ipratropium (Duoneb) 3 ml NEB Q4H PRN PRN Reason: SOB &/or Wheezing Albuterol/Ipratropium (Duoneb) 3 ml NEB BID [facility] Last Admin: 05/17/18 08:08 Dose: 3 ml Enoxaparin Sodium (Lovenox) 70 mg SC 0900,2100 [facility] Last Admin: 05/17/18 09:19 Dose: 70 mg Guaifenesin/Dextromethorphan (Robitussin Dm) 10 ml PO Q6H PRN PRN Reason: Cough Last Admin: 05/16/18 06:19 Dose: 10 ml Levofloxacin 500 mg/ Device 100 mls @ 100 mls/hr IVPB Q24HR [facility] [place] Last Admin: 05/16/18 16:21 Dose: 100 mls Diltiazem HCl 125 mg/Miscellaneous Medication 1 each/ Sodium Chloride 125 mls @ 0 mls/hr IVPB INF HEIDI; Protocol Last Admin: 05/17/18 00:10 Dose: 125 mls Sodium Chloride (Normal Saline 0.9%) 1,000 mls @ 20 mls/hr IV .Q24H HEIDI Last Admin: 05/16/18 21:07 Dose: 1,000 mls Ondansetron HCl (Zofran Odt) 4 mg PO Q6H PRN PRN Reason: Nausea/Vomiting Last Admin: 05/16/18 01:52 Dose: 4 mg Pantoprazole Sodium (Protonix) 40 mg IVP DAILY HEIDI Last Admin: 05/17/18 10:49 Dose: 40 mg Sodium Chloride (Flush - Normal Saline) 10 ml IVF Q12HR HEIDI Last Admin: 05/17/18 10:49 Dose: 10 ml Sodium Chloride (Flush - Normal Saline) 10 ml IVF PRN PRN PRN Reason: Saline Flush Sodium Chloride (Flush - Normal Saline) 10 ml IV DAILY [facility] [place] Last Admin: 05/17/18 10:50 Dose: 10 ml
--- NOTE | 2018-05-17 19:17 | CT ---
CT OF THE ABDOMEN AND PELVIS WITH CONTRAST 05/17/18 HISTORY: Abdominal swelling. Ileus versus bowel obstruction. COMPARISON: CTA abdomen 05/12/18. TECHNIQUE: Multiple contiguous axial images were obtained in a CT of the abdomen and pelvis with contrast. PO co ntrast was administrated. Coronal reformats were performed. FINDINGS: The gallbladder has been removed. The patient is status post hysterectomy. There is an anastomotic st able line seen in the rectum. The liver, kidneys, and pancreas are unremarkable. The spleen has been removed and there are small splenules in the left upper quadrant of the abdomen. There is nodularity of both adrenal glands. The largest nodule is seen on the right measuring 2.1 cm in size. Contrast is seen within multiple bowel loops in the abdomen. The colon contains fluid and is the pred ominant bowel that is distended. There are a few distended loops of proximal jejunum. These measure u p to 5.5 cm in width. The jejunum eventually becomes more normal caliber distally without clear trans ition point identified. An NG tube is seen in the stomach. There is also an anastomotic staple line w ithin small bowel loops in the midline of the lower abdomen and in the ileal region. No abdominal or pelvic lymphadenopathy are seen. Atherosclerotic calcifications are seen in the aorta . Degenerative changes are seen in the spine. There are small bilateral pleural effusions with adjacent atelectasis. Calcified granulomas are seen in the right lung base. The abdominal wall soft tissues a re unremarkable. IMPRESSION: 1. There are distended loops of bowel proximal jejunum and colon without clear transition point. This favors an ileus or partial small bowel obstruction. 2. Bilateral adrenal nodules. 3. Small bilateral pleural effusions with adjacent atelectasis. POS: [facility]
[2018-05-17] MEDS ORDERED: Potassium Chloride 20 MEQ in Premix Bag 1 BAG IVPB SCH (20:00)
[2018-05-17] MEDS ORDERED: Ondansetron PF 4 MG/2 ML Vial IVP PRN (20:08)
[2018-05-17] MEDS: Sodium Chloride 0.9% 1,000 ML IV SCH (23:44)
[2018-05-18] MEDS: Diltiazem HCl 125 MG, Admixture Fee 1 EACH in Sodium Chloride 0.9% 100 ML IVPB SCH ×2 (00:30→21:48)
[2018-05-18 05:36] LABS: Anion Gap 14 mmol/L (10-20); BUN (Urea Nitrogen) 14 mg/dL (9.8-20.1); Calc. Creatinine Clearance 71 mL/min (70-130); Calcium 8.7 mg/dL (7.8-10.44); Carbon Dioxide 33 mmol/L (23-31); Chloride 97 mmol/L (98-107); Estimated GFR-MDRD 88; Glucose 104 mg/dL (83-110); Magnesium 1.9 mg/dL (1.6-2.6); Sodium 141 mmol/L (136-145)
[2018-05-18 05:39] LABS: Bilirubin, Direct 1.7 mg/dL (0.1-0.3); Bilirubin, Total 5.8 mg/dL (0.2-1.2)
[2018-05-18 05:42] LABS: Phosphorus 1.6 mg/dL (2.3-4.7); Potassium 2.9 mmol/L (3.5-5.1)
[2018-05-18] MEDS ORDERED: Magnesium 2 GM/50 ML 2 GM in Premix Bag 1 BAG IVPB SCH (06:15)
[2018-05-18] MEDS ORDERED: Potassium Phosphate 30 MMOL in Sodium Chloride 0.9% 500 ML IVPB SCH (06:30)
[2018-05-18] MEDS: Pantoprazole 40 MG VIAL IVP SCH (09:39)
[2018-05-18] MEDS: Enoxaparin Sodium 80 MG/0.8 ML SYRINGE SC SCH ×2 (09:40→21:47)
[2018-05-18] MEDS: Digoxin 0.5 MG/2 ML AMP SLOW IVP SCH (09:40)
--- NOTE | 2018-05-18 10:46 | PRG ---
DATE OF SERVICE: 05/18/2018 SUBJECTIVE: She feels better. She is wanting to take liquids in. OBJECTIVE: VITAL SIGNS: Temperature 97.8, pulse 97, respirations 18, O2 saturation is 98% on room air, and blood pressure 116/70. HEENT: Unremarkable. NECK: No JVD. LUNGS: Clear anteriorly. CARDIAC: S1 and S2, regular. ABDOMEN: Less distended. EXTREMITIES: No edema. LABORATORY DATA: Sodium 141, potassium 2.9, chloride 97, CO2 of 33, BUN 14, creatinine 0.6, glucose 104, and phosphorus 1.6. ASSESSMENT: 1. Small bowel ileus. 2. Hypokalemia. 3. Hypophosphatemia. 4. Chronic atrial fibrillation with rapid ventricular response. 5. Pneumonia, which seems to be better. PLAN: 1. Correct electrolytes. 2. Continue IV antibiotics and switch to oral antibiotics when she is able to take oral medication. Her pulmonary status is improving. Job ID: [id number]
--- NOTE | 2018-05-18 15:12 | PDOC.PN ---
- Subjective Encounter Start Date: 05/18/18 Encounter Start Time: 15:10 Subjective: feels a little better.had a small loose Bm last night. - Objective Resuscitation Status - Order Detail: 05/12/18 15:37 Resuscitation Status Routine Resuscitation Status: DNAR: NO Resuscitation Discussed with: pow/patient MAR Reviewed: Yes Vital Signs & Weight: Vital Signs (12 hours) Temp Pulse Resp BP Pulse Ox 05/18/18 12:00 97.5 F L 95 18 119/56 L 05/18/18 09:40 140 H 05/18/18 08:00 97.8 F 97 18 116/70 98 05/18/18 07:38 94 L 05/18/18 07:36 65 16 94 L 05/18/18 04:25 97.5 F L 101 H 18 117/57 L 93 L Weight Weight 151 lb 1.6 oz Most Recent Monitor Data Heart Rate from ECG 92 NIBP 117/70 NIBP BP-Mean 85 Respiration from ECG 19 SpO2 95 I&O: 05/17/18 05/18/18 05/19/18 06:59 06:59 06:59 Intake Total 800 1687 Output Total 1300 2500 Balance -500 -813 Result Diagrams: 05/17/18 06:15 05/18/18 05:01 Phys Exam - Physical Examination Constitutional: NAD HEENT: PERRLA, moist MMs, sclera anicteric, oral pharynx no lesions Neck: no nodes, no JVD, supple, full ROM Respiratory: no wheezing, no rales, no rhonchi, clear to auscultation bilateral Cardiovascular: RRR, no significant murmur, no rub Gastrointestinal: soft, non-tender, no distention, positive bowel sounds Musculoskeletal: no edema, pulses present Neurological: non-focal, normal sensation, moves all 4 limbs Psychiatric: normal affect, A&O x 3 Skin: no rash Dx/Plan (1) Ileus Code(s): K56.7 - ILEUS, UNSPECIFIED Status: Acute Comment: GI note reviewed , appreciated, NGT placed. PO meds stopped. on BID lovenox,IV CCB drip .CT scan ordered.KUB stable. (2) Hypokalemia Code(s): E87.6 - HYPOKALEMIA Status: Acute Comment: Replete, check AML and check AM Mg (3) Chronic atrial fibrillation with RVR Code(s): I48.2 - CHRONIC ATRIAL FIBRILLATION Status: Acute Comment: RVR secondary to medical condition. Presently on oral and IV diltiazem. Digoxin d/ c per cardiology. 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 Presently on levaquin. Added bid duonebs scheduled, has q 4 hour available (6) Hypomagnesemia Code(s): E83.42 - HYPOMAGNESEMIA Status: Acute (7) Hyperbilirubinemia Code(s): E80.6 - OTHER DISORDERS OF BILIRUBIN METABOLISM Status: Acute Comment: Inga Lema's in setting of acute illness. AST/ALT WNL. RUQ-US shows no CBD dilatation or CBD stones. (8) Essential hypertension Code(s): I10 - ESSENTIAL (PRIMARY) HYPERTENSION Status: Acute - Plan continue antibiotics, respiratory therapy, incentive spirometry, out of bed/ ambulate, DVT proph w/SCDs Cont NGT.await final GI recs. -: cont CCB drip,BID lovenox -: clinically better w reduced NG output -: am labs.replace and recheck lytes. * . Review of Systems - Review of Systems Constitutional: weakness, malaise. negative: fever, chills, sweats, other Respiratory: negative: Cough, Dry, Shortness of Breath, Hemoptysis, SOB with Excertion, Pleuritic Pain, Sputum, Wheezing Cardiovascular: negative: chest pain, palpitations, orthopnea, paroxysmal nocturnal dyspnea, edema, light headedness, other Gastrointestinal: negative: Nausea, Vomiting, Abdominal Pain, Diarrhea, Constipation, Melena, Hematochezia, Other Genitourinary: negative: Dysuria, Frequency, Incontinence, Hematuria, Retention , Other Musculoskeletal: negative: Neck Pain, Shoulder Pain, Arm Pain, Back Pain, Hand Pain, Leg Pain, Foot Pain, Other Neurological: negative: Weakness, Numbness, Incoordination, Change in Speech, Confusion, Seizures, Other - Medications/Allergies Allergies/Adverse Reactions: Allergies Allergy/AdvReac Type Severity Reaction Status Date / Time No Known Drug Allergies Allergy Verified 05/16/18 20:58 Medications: Current Medications Al Hydroxide/Mg Hydroxide (Maalox) 30 ml PO Q6H PRN PRN Reason: Indigestion Albuterol/Ipratropium (Duoneb) 3 ml NEB [id number] PRN PRN Reason: SOB &/or Wheezing Last Admin: 05/15/18 15:20 Dose: 3 ml Albuterol/Ipratropium (Duoneb) 3 ml NEB Q4H PRN PRN Reason: SOB &/or Wheezing Albuterol/Ipratropium (Duoneb) 3 ml NEB BID [facility] Last Admin: 05/18/18 07:36 Dose: 3 ml Digoxin (Lanoxin) 0.25 mg SLOW IVP DAILY [facility] Last Admin: 05/18/18 09:40 Dose: 0.25 mg Enoxaparin Sodium (Lovenox) 70 mg SC 0900,2100 [facility] Last Admin: 05/18/18 09:40 Dose: 70 mg Guaifenesin/Dextromethorphan (Robitussin Dm) 10 ml PO Q6H PRN PRN Reason: Cough Last Admin: 05/16/18 06:19 Dose: 10 ml Levofloxacin 500 mg/ Device 100 mls @ 100 mls/hr IVPB Q24HR [facility] Last Admin: 05/17/18 17:28 Dose: 100 mls Diltiazem HCl 125 mg/Miscellaneous Medication 1 each/ Sodium Chloride 125 mls @ 0 mls/hr IVPB INF [facility]; Protocol Last Admin: 05/18/18 00:30 Dose: 125 mls Sodium Chloride (Normal Saline 0.9%) 1,000 mls @ 20 mls/hr IV .Q24H [facility] Last Admin: 05/17/18 23:44 Dose: 1,000 mls Potassium Phosphate 30 mmol/ (Sodium Chloride) 510 mls @ 63.75 mls/hr IVPB NOW [facility] Stop: 05/18/18 16:00 Last Admin: 05/18/18 06:52 Dose: 510 mls Ondansetron HCl (Zofran Odt) 4 mg PO Q6H PRN PRN Reason: Nausea/Vomiting Last Admin: 05/16/18 01:52 Dose: 4 mg Ondansetron HCl (Zofran) 4 mg IVP Q6H PRN PRN Reason: Nausea/Vomiting Last Admin: 05/18/18 05:44 Dose: 4 mg Pantoprazole Sodium (Protonix) 40 mg IVP DAILY [facility] Last Admin: 05/18/18 09:39 Dose: 40 mg Sodium Chloride (Flush - Normal Saline) 10 ml IVF Q12HR [facility] Last Admin: 05/18/18 09:43 Dose: 10 ml Sodium Chloride (Flush - Normal Saline) 10 ml IVF PRN PRN PRN Reason: Saline Flush Last Admin: 05/18/18 09:45 Dose: 10 ml Sodium Chloride (Flush - Normal Saline) 10 ml IV DAILY [facility] Last Admin: 05/18/18 09:39 Dose: 10 ml
[2018-05-18] MEDS: Potassium Chloride 10 MEQ in Premix Bag 1 BAG IVPB SCH ×6 (15:48→19:37)
--- NOTE | 2018-05-18 17:00 | PRG ---
DATE OF SERVICE: 05/18/2018 SUBJECTIVE: Ms. Blunt is feeling better today. She had some scant bowel movement about 3 this morning and also at about 8 this morning per the nurse. The patient confirms she states she is passing flatus. She is thirsty and wants some water. I talked to Dr. Gutierrez. He reports that she is improving from a pneumonia standpoint. OBJECTIVE: VITAL SIGNS: Temperature is 97, pulse 95, blood pressure 119/56. LUNGS: Better inspiratory effort. Better breath sounds. HEART: Irregular rate and rhythm. ABDOMEN: Soft, nontender. DIAGNOSTIC DATA: CT scan showed no overt obstruction. There are some dilated loops of air in the small and large colon consistent with ileus. LABORATORY DATA: Sodium 141, potassium 3.9, BUN and creatinine 14 and 0.64. Bilirubin was 5.8 with a direct of 1.7. Total serum protein 5.3, albumin 2.8. AST and ALT are 14 and 13, alkaline phosphatase is 70. Magnesium 1.9 today, phosphorus 1.6 today. ASSESSMENT: Ileus with no signs of overt small-bowel obstruction. She has started to have some bowel movements now. I suspect this is related to her medications, pneumonia, and electrolyte abnormalities. RECOMMENDATIONS: 1. Clamped NG tube, start liquids. 2. We will reassess clinically in the morning. 3. Check basic metabolic profile and phosphorus and magnesium having to be replaced daily. 4. The patient starts p.o. intake with advance as tolerated. remove her NG tube tomorrow and get her off IV fluids. We will follow along with you. Job ID: [id number]
[2018-05-18] MEDS: Sodium Chloride 0.9% 1,000 ML IV SCH (21:49)
[2018-05-19 06:49] LABS: Anion Gap 16 mmol/L (10-20); BUN (Urea Nitrogen) 11 mg/dL (9.8-20.1); Calc. Creatinine Clearance 90 mL/min (70-130); Calcium 8.5 mg/dL (7.8-10.44); Carbon Dioxide 27 mmol/L (23-31); Chloride 100 mmol/L (98-107); Estimated GFR-MDRD Greater than 90; Glucose 107 mg/dL (83-110); Magnesium 2.1 mg/dL (1.6-2.6); Phosphorus 1.7 mg/dL (2.3-4.7); Potassium 3.7 mmol/L (3.5-5.1); Sodium 139 mmol/L (136-145)
[2018-05-19] MEDS ORDERED: Potassium Phosphate 9 MMOL in Sodium Chloride 0.9% 100 ML IVPB SCH (08:45)
[2018-05-19] MEDS: Enoxaparin Sodium 80 MG/0.8 ML SYRINGE SC SCH ×2 (09:33→21:07)
[2018-05-19] MEDS: Digoxin 0.5 MG/2 ML AMP SLOW IVP SCH (09:33)
[2018-05-19] MEDS: Pantoprazole 40 MG VIAL IVP SCH (09:34)
--- NOTE | 2018-05-19 11:23 | PRG ---
DATE OF SERVICE: 05/19/2018 SUBJECTIVE: She developed nausea after trying to eat this morning. She says her breathing is okay. OBJECTIVE: VITAL SIGNS: Temperature 97.8, pulse 111, respirations 18, O2 saturation 94% on 3 L, blood pressure 124/59. HEENT: Unremarkable. NECK: No JVD. LUNGS: Clear, but distant breath sounds. CARDIAC: S1, S2. Regular. ABDOMEN: Protuberant. Bowel sounds hypoactive. EXTREMITIES: No edema. LABORATORY DATA: Sodium 139, potassium 3.7, BUN 11, creatinine 0.5, glucose 107, phosphorus 1.7. ASSESSMENT: 1. Pneumonia. 2. Small bowel ileus. PLAN: 1. Continue antibiotics. 2. Continue bowel rest. Job ID: [id number]
--- NOTE | 2018-05-19 13:55 | EKG ---
Test Reason : Blood Pressure : / mmHG Vent. Rate : 140 BPM Atrial Rate : 147 BPM P-R Int : 000 ms QRS Dur : 084 ms QT Int : 250 ms P-R-T Axes : 000 032 221 degrees QTc Int : 381 ms Atrial fibrillation with rapid ventricular response Left ventricular hypertrophy Marked ST abnormality, possible anterior subendocardial injury Abnormal ECG Confirmed by BRITTANY GREY D.O. ([id number]), editorial clerk EITAN MUELLER ([id number]) on 05/19/2018 1:54:37 PM Referred By: QUE Confirmed By:BRITTANY GREY D.O.
--- NOTE | 2018-05-19 13:58 | PDOC.PN ---
- Subjective Encounter Start Date: 05/19/18 Encounter Start Time: 13:56 Subjective: feels a little better .NG clamped yesterday -: mild nausea.no vomiting.loose stools - Objective Resuscitation Status - Order Detail: 05/12/18 15:37 Resuscitation Status Routine Resuscitation Status: DNAR: NO Resuscitation Discussed with: pow/patient MAR Reviewed: Yes Vital Signs & Weight: Vital Signs (12 hours) Temp Pulse Resp BP Pulse Ox 05/19/18 12:13 98.0 F 94 L 05/19/18 11:40 77 131/62 05/19/18 10:40 99 121/62 05/19/18 09:40 111 H 124/59 L 05/19/18 09:33 100 05/19/18 09:31 100 127/57 L 05/19/18 08:40 100 127/61 05/19/18 07:40 97.8 F 107 H 18 112/57 L 94 L 05/19/18 07:01 92 16 93 L 05/19/18 03:14 98.2 F 93 20 124/60 92 L Weight Weight 161 lb 14.4 oz Most Recent Monitor Data Heart Rate from ECG 92 NIBP 117/70 NIBP BP-Mean 85 Respiration from ECG 19 SpO2 95 I&O: 05/18/18 05/19/18 05/20/18 06:59 06:59 06:59 Intake Total 1687 1881 Output Total 2500 630 Balance -813 1251 Result Diagrams: 05/17/18 06:15 05/19/18 06:17 Phys Exam - Physical Examination Constitutional: NAD HEENT: PERRLA, moist MMs, sclera anicteric, oral pharynx no lesions Neck: no nodes, no JVD, supple, full ROM Respiratory: no wheezing, no rales, no rhonchi, clear to auscultation bilateral Cardiovascular: RRR, no significant murmur Gastrointestinal: soft, non-tender, no distention, positive bowel sounds Musculoskeletal: no edema, pulses present Neurological: non-focal, normal sensation, moves all 4 limbs Skin: no rash Dx/Plan (1) Ileus Code(s): K56.7 - ILEUS, UNSPECIFIED Status: Acute Comment: GI note reviewed , appreciated, NGT clamed. PO meds on hold. on BID lovenox,IV CCB drip .CT scan stable..KUB stable. (2) Hypokalemia Code(s): E87.6 - HYPOKALEMIA Status: Acute Comment: Replete, check AML and check AM Mg (3) Chronic atrial fibrillation with RVR Code(s): I48.2 - CHRONIC ATRIAL FIBRILLATION Status: Acute Comment: RVR secondary to medical condition. Presently on IV diltiazem. Digoxin d/c per cardiology. 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 Presently on levaquin. Added bid duonebs scheduled, has q 4 hour available (6) Hypomagnesemia Code(s): E83.42 - HYPOMAGNESEMIA Status: Acute (7) Hyperbilirubinemia Code(s): E80.6 - OTHER DISORDERS OF BILIRUBIN METABOLISM Status: Acute Comment: Haydeekeyur Lema's in setting of acute illness. AST/ALT WNL. RUQ-US shows no CBD dilatation or CBD stones. (8) Essential hypertension Code(s): I10 - ESSENTIAL (PRIMARY) HYPERTENSION Status: Acute - Plan plan discussed w/ family, continue antibiotics, PT/OT, incentive spirometry, out of bed/ambulate, DVT proph w/SCDs started on CLD.monitor clinicaly.if tolerates-remove NGT -: change meds to PO if tolerated Po -: SNIF eval. -: Hd stable. * . Review of Systems - Review of Systems Constitutional: weakness, malaise. negative: fever, chills, sweats, other ENT: negative: Ear Pain, Ear Discharge, Nose Pain, Nose Discharge, Nose Congestion, Mouth Pain, Mouth Swelling, Throat Pain, Throat Swelling, Other Respiratory: negative: Cough, Dry, Shortness of Breath, Hemoptysis, SOB with Excertion, Pleuritic Pain, Sputum, Wheezing Cardiovascular: negative: chest pain, palpitations, orthopnea, paroxysmal nocturnal dyspnea, edema, light headedness, other Gastrointestinal: negative: Nausea, Vomiting, Abdominal Pain, Diarrhea, Constipation, Melena, Hematochezia, Other Genitourinary: negative: Dysuria, Frequency, Incontinence, Hematuria, Retention , Other Musculoskeletal: negative: Neck Pain, Shoulder Pain, Arm Pain, Back Pain, Hand Pain, Leg Pain, Foot Pain, Other Neurological: negative: Weakness, Numbness, Incoordination, Change in Speech, Confusion, Seizures, Other - Medications/Allergies Allergies/Adverse Reactions: Allergies Allergy/AdvReac Type Severity Reaction Status Date / Time No Known Drug Allergies Allergy Verified 05/16/18 20:58 Medications: Current Medications Al Hydroxide/Mg Hydroxide (Maalox) 30 ml PO Q6H PRN PRN Reason: Indigestion Albuterol/Ipratropium (Duoneb) 3 ml NEB [id number] PRN PRN Reason: SOB &/or Wheezing Last Admin: 05/15/18 15:20 Dose: 3 ml Albuterol/Ipratropium (Duoneb) 3 ml NEB Q4H PRN PRN Reason: SOB &/or Wheezing Albuterol/Ipratropium (Duoneb) 3 ml NEB BID [facility] Last Admin: 05/19/18 07:01 Dose: 3 ml Digoxin (Lanoxin) 0.25 mg SLOW IVP DAILY [facility] Last Admin: 05/19/18 09:33 Dose: 0.25 mg Enoxaparin Sodium (Lovenox) 70 mg SC 0900,2100 [facility] Last Admin: 05/19/18 09:33 Dose: 70 mg Guaifenesin/Dextromethorphan (Robitussin Dm) 10 ml PO Q6H PRN PRN Reason: Cough Last Admin: 05/16/18 06:19 Dose: 10 ml Levofloxacin 500 mg/ Device 100 mls @ 100 mls/hr IVPB Q24HR [facility] Last Admin: 05/18/18 16:13 Dose: 100 mls Diltiazem HCl 125 mg/Miscellaneous Medication 1 each/ Sodium Chloride 125 mls @ 0 mls/hr IVPB INF [facility]; Protocol Last Admin: 05/18/18 21:48 Dose: 125 mls Sodium Chloride (Normal Saline 0.9%) 1,000 mls @ 20 mls/hr IV .Q24H [facility] Last Admin: 05/18/18 21:49 Dose: 1,000 mls Ondansetron HCl (Zofran Odt) 4 mg PO Q6H PRN PRN Reason: Nausea/Vomiting Last Admin: 05/16/18 01:52 Dose: 4 mg Ondansetron HCl (Zofran) 4 mg IVP Q6H PRN PRN Reason: Nausea/Vomiting Last Admin: 05/18/18 05:44 Dose: 4 mg Pantoprazole Sodium (Protonix) 40 mg PO DAILY [facility] Sodium Chloride (Flush - Normal Saline) 10 ml IVF Q12HR [facility] Last Admin: 05/18/18 21:48 Dose: 10 ml Sodium Chloride (Flush - Normal Saline) 10 ml IVF PRN PRN PRN Reason: Saline Flush Last Admin: 05/18/18 09:45 Dose: 10 ml Sodium Chloride (Flush - Normal Saline) 10 ml IV DAILY [facility] Last Admin: 05/18/18 09:39 Dose: 10 ml
--- NOTE | 2018-05-19 17:25 | PRG ---
DATE OF SERVICE: 05/19/2018 SUBJECTIVE: Ms. Blunt is in bed. She has not been out of bed today per her or her daughters. She states she had a scant bowel movement, but she is not really taking anything p.o. because she has been nauseated. OBJECTIVE: VITAL SIGNS: Heart rate anywhere from 96 to 101, temperature is 98, and blood pressure is 123/58. NEUROLOGIC: She has a flat affect. LUNGS: Clear. HEART: Regular rhythm. ABDOMEN: Nontender, slightly protuberant. Bowel sounds are quiescent. LABORATORY DATA: No CBC since the night. Electrolytes show sodium 139, potassium 3.7, chloride 101, bicarbonate 27, BUN and creatinine are 11 and 0.57, phosphorus 1.7, calcium 8.5, and magnesium 2.1. ASSESSMENT: 1. Ileus. This seemed to be improving yesterday and the day before. She was started to have bowel movements and wanting some liquids; however, she has not been in the bed in 2 days. She was nauseated now and has not taken anything by mouth today and hooking her NG tube up, which had been clamped for 2 days to suction. She has 500 mL of output and feels better. 2. The patient has been bed bound. 3. Atrial fibrillation. 4. Pneumonia. RECOMMENDATIONS: 1. The patient needs to get out of bed. I have talked to her and her daughters very frankly the fact that if she is not start mobilizing, she will not get better, we will need to go a longterm, where she would likely continue to waste away. I have talked to Physical Therapy and the nursing staff and explained to them as well as the patient and the patient's family that she needs to be out of bed and chair 4 times a day and needs to be ambulating in the pineda or at least in the room with assistance by tomorrow. 2. Continue to check electrolytes regularly. 3. We will see what her NG output does over 24 hours tomorrow and try to clamp it again tomorrow with a trial that way. Job ID: [id number]
[2018-05-19] MEDS: Sodium Chloride 0.9% 1,000 ML IV SCH (21:05)
[2018-05-19] MEDS: Diltiazem HCl 125 MG, Admixture Fee 1 EACH in Sodium Chloride 0.9% 100 ML IVPB SCH (21:07)
[2018-05-20 06:01] LABS: ALT (SGPT) 18 U/L (8-55); AST (SGOT) 28 U/L (5-34); Albumin 2.5 g/dL (3.4-4.8); Alkaline Phosphatase 67 U/L (40-150); Anion Gap 14 mmol/L (10-20); BUN (Urea Nitrogen) 11 mg/dL (9.8-20.1); Bilirubin, Total 4.4 mg/dL (0.2-1.2); Calc. Creatinine Clearance 88 mL/min (70-130); Calcium 8.6 mg/dL (7.8-10.44); Carbon Dioxide 30 mmol/L (23-31); Chloride 100 mmol/L (98-107); Estimated GFR-MDRD Greater than 90; Globulin 2.7 g/dL (2.4-3.5); Glucose 81 mg/dL (83-110); Magnesium 2.3 mg/dL (1.6-2.6); Phosphorus 2.2 mg/dL (2.3-4.7); Potassium 4.1 mmol/L (3.5-5.1); Protein, Total 5.2 g/dL (6.0-8.3); Sodium 140 mmol/L (136-145)
[2018-05-20 06:17] LABS: Band 3 % (5-11); Hemoglobin 11.4 g/dL (12.0-16.0); Hypochromia SLIGHT = 6-15 cells (100X) (0-5/hpf); Lymphocytes 8 % (21-51); MDiff Complete? YES; Mean Corpuscular HGB CONC 32.6 g/dL (32.0-36.0); Mean Corpuscular Hemoglobin 34.9 pg (27.0-31.0); Mean Platelet Volume 8.4 fL (7.4-10.4); Monocytes 3 % (0-10); Neutrophil 86 % (42-75); Platelet Count 295 thou/uL (130-400); Platelet Morphology Comment Appears Adequate; RBC Distribution Width 14.4 % (11.5-14.5); Red Blood Cell (RBC) Count 3.27 mill/uL (4.20-5.40); White Blood Cell (WBC) Count 25.3 thou/uL (4.8-10.8)
[2018-05-20] MEDS: Enoxaparin Sodium 80 MG/0.8 ML SYRINGE SC SCH ×2 (09:18→21:43)
[2018-05-20] MEDS: Digoxin 0.5 MG/2 ML AMP SLOW IVP SCH (09:20)
--- NOTE | 2018-05-20 13:10 | PRG ---
DATE OF SERVICE: 05/20/2018 SUBJECTIVE: This morning, she is better. Still having difficulty breathing. OBJECTIVE: VITAL SIGNS: Saturations are 95 on 2 L, respiratory rate 18, temperature 97, and blood pressure 95/50. CHEST: Decreased breath sounds. No wheezing. CARDIAC: Normal S1 and S2. No gallops. ABDOMEN: Soft without masses. LABORATORY DATA: White count is 25,000 and H and H are 11 and 35. Lytes are normal. IMPRESSION: Pneumonia, small bowel ileus, severe deconditioning, and advanced age. PLAN: Continue antibiotics, neb treatments, and supportive care. We will follow. Job ID: [id number]
--- NOTE | 2018-05-20 13:21 | PDOC.PN ---
- Subjective Encounter Start Date: 05/20/18 Encounter Start Time: 13:19 Subjective: feels better .was able to walk twice last evening -: still w lot of output from NGT tube when it is unclamped -: no nausea or increased abd pain - Objective Resuscitation Status - Order Detail: 05/12/18 15:37 Resuscitation Status Routine Resuscitation Status: DNAR: NO Resuscitation Discussed with: pow/patient MAR Reviewed: Yes Vital Signs & Weight: Vital Signs (12 hours) Temp Pulse Resp BP BP Pulse Ox 05/20/18 12:00 97.8 F 94 18 95/50 L 94 L 05/20/18 09:20 90 05/20/18 07:30 97.6 F 90 18 117/56 L 100 05/20/18 07:07 93 16 94 L 05/20/18 04:39 97.8 F 73 16 112/56 L 92 L Weight Weight 160 lb Most Recent Monitor Data Heart Rate from ECG 92 NIBP 117/70 NIBP BP-Mean 85 Respiration from ECG 19 SpO2 95 I&O: 05/19/18 05/20/18 05/21/18 06:59 06:59 06:59 Intake Total 1881 Output Total 630 Balance 1251 Result Diagrams: 05/20/18 05:16 05/20/18 05:16 Additional Labs: Laboratory Tests 05/12/18 05/17/18 05/18/18 12:30 06:15 05:01 Total Bilirubin 1.1 4.3 H 5.8 H 05/20/18 05:16 Total Bilirubin 4.4 H Phys Exam - Physical Examination Constitutional: NAD pale but overall looks better HEENT: PERRLA, moist MMs, sclera anicteric, oral pharynx no lesions ngt in place Neck: no nodes, no JVD, supple, full ROM Respiratory: no wheezing, no rales, no rhonchi, clear to auscultation bilateral Cardiovascular: RRR, no significant murmur Gastrointestinal: soft, non-tender, no distention, positive bowel sounds Musculoskeletal: no edema, pulses present Neurological: non-focal, normal sensation, moves all 4 limbs Psychiatric: normal affect, A&O x 3 Dx/Plan (1) Ileus Code(s): K56.7 - ILEUS, UNSPECIFIED Status: Acute Comment: GI note reviewed , appreciated, NGT clamed. PO meds on hold. on BID lovenox,IV CCB drip .CT scan stable..KUB stable. (2) Hypokalemia Code(s): E87.6 - HYPOKALEMIA Status: Acute Comment: Replete, check AML and check AM Mg (3) Chronic atrial fibrillation with RVR Code(s): I48.2 - CHRONIC ATRIAL FIBRILLATION Status: Acute Comment: RVR secondary to medical condition. Presently on IV diltiazem. Digoxin d/c per cardiology. 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 Presently on levaquin. Added bid duonebs scheduled, has q 4 hour available (6) Hypomagnesemia Code(s): E83.42 - HYPOMAGNESEMIA Status: Acute (7) Hyperbilirubinemia Code(s): E80.6 - OTHER DISORDERS OF BILIRUBIN METABOLISM Status: Acute Comment: Inga Lema's in setting of acute illness. AST/ALT WNL. RUQ-US shows no CBD dilatation or CBD stones. (8) Essential hypertension Code(s): I10 - ESSENTIAL (PRIMARY) HYPERTENSION Status: Acute - Plan plan discussed w/ family, continue antibiotics, PT/OT, respiratory therapy, incentive spirometry, out of bed/ambulate, DVT proph w/SCDs worsening WBC counts but clinically little better -: will recheck CBC tomorrow and if still bad,will repeat KUB. -: increase ambulation .advised again. -: cont levaquin.no Cx obtained at admission.no clinical evidence of infection -: rest as above.appreciate GI input * . Review of Systems - Review of Systems Constitutional: weakness. negative: fever, chills, sweats, malaise, other ENT: negative: Ear Pain, Ear Discharge, Nose Pain, Nose Discharge, Nose Congestion, Mouth Pain, Mouth Swelling, Throat Pain, Throat Swelling, Other Cardiovascular: negative: chest pain, palpitations, orthopnea, paroxysmal nocturnal dyspnea, edema, light headedness, other Gastrointestinal: negative: Nausea, Vomiting, Abdominal Pain, Diarrhea, Constipation, Melena, Hematochezia, Other Genitourinary: negative: Dysuria, Frequency, Incontinence, Hematuria, Retention , Other Musculoskeletal: negative: Neck Pain, Shoulder Pain, Arm Pain, Back Pain, Hand Pain, Leg Pain, Foot Pain, Other Neurological: negative: Weakness, Numbness, Incoordination, Change in Speech, Confusion, Seizures, Other - Medications/Allergies Allergies/Adverse Reactions: Allergies Allergy/AdvReac Type Severity Reaction Status Date / Time No Known Drug Allergies Allergy Verified 05/16/18 20:58 Medications: Current Medications Al Hydroxide/Mg Hydroxide (Maalox) 30 ml PO Q6H PRN PRN Reason: Indigestion Albuterol/Ipratropium (Duoneb) 3 ml NEB [id number] PRN PRN Reason: SOB &/or Wheezing Last Admin: 05/15/18 15:20 Dose: 3 ml Albuterol/Ipratropium (Duoneb) 3 ml NEB Q4H PRN PRN Reason: SOB &/or Wheezing Albuterol/Ipratropium (Duoneb) 3 ml NEB BID [facility] Last Admin: 05/20/18 07:07 Dose: 3 ml Digoxin (Lanoxin) 0.25 mg SLOW IVP DAILY [facility] Last Admin: 05/20/18 09:20 Dose: 0.25 mg Enoxaparin Sodium (Lovenox) 70 mg SC 0900,2100 [facility] Last Admin: 05/20/18 09:18 Dose: 70 mg Guaifenesin/Dextromethorphan (Robitussin Dm) 10 ml PO Q6H PRN PRN Reason: Cough Last Admin: 05/16/18 06:19 Dose: 10 ml Levofloxacin 500 mg/ Device 100 mls @ 100 mls/hr IVPB Q24HR [facility] Last Admin: 05/19/18 18:22 Dose: 100 mls Diltiazem HCl 125 mg/Miscellaneous Medication 1 each/ Sodium Chloride 125 mls @ 0 mls/hr IVPB INF [facility]; Protocol Last Admin: 05/19/18 21:07 Dose: 125 mls Sodium Chloride (Normal Saline 0.9%) 1,000 mls @ 20 mls/hr IV .Q24H [facility] Last Admin: 05/19/18 21:05 Dose: Not Given Ondansetron HCl (Zofran Odt) 4 mg PO Q6H PRN PRN Reason: Nausea/Vomiting Last Admin: 05/16/18 01:52 Dose: 4 mg Ondansetron HCl (Zofran) 4 mg IVP Q6H PRN PRN Reason: Nausea/Vomiting Last Admin: 05/18/18 05:44 Dose: 4 mg Pantoprazole Sodium (Protonix) 40 mg PO DAILY [facility] Last Admin: 05/20/18 09:18 Dose: 40 mg Sodium Chloride (Flush - Normal Saline) 10 ml IVF Q12HR [facility] Last Admin: 05/20/18 09:21 Dose: Not Given Sodium Chloride (Flush - Normal Saline) 10 ml IVF PRN PRN PRN Reason: Saline Flush Last Admin: 05/18/18 09:45 Dose: 10 ml Sodium Chloride (Flush - Normal Saline) 10 ml IV DAILY [facility] Last Admin: 05/20/18 09:21 Dose: Not Given
--- NOTE | 2018-05-20 13:39 | PRG ---
DATE OF SERVICE: 05/20/2018 SUBJECTIVE: The patient has been walking quite a bit. She has been out of bed. She did report some flatus and also some liquid bowel movement. She denies any abdominal pain, any nausea or vomiting. She did have 300 out from her NG, but the nurse feels that possibly this was contaminated by oral intake. OBJECTIVE: VITAL SIGNS: Temperature is 97.8, pulse 94, respiratory rate 18, and blood pressure 95/50. CHEST: Clear. CARDIOVASCULAR: Regular rate and rhythm. ABDOMEN: Soft, nontender, with some hypoactive bowel sounds. LABORATORY DATA: Shows a white blood cell count of 25.3, hemoglobin 11.4, hematocrit of 35.0. Chemistries show glucose of 81 and albumin 2.5. ASSESSMENT: 1. Ileus. 2. Atrial fibrillation. 3. Pneumonia. 4. Leukocytosis. RECOMMENDATIONS: 1. We will clamp NG if she is able to tolerate this without any further nausea and vomiting, then we would discontinue NG and start clear liquids. 2. Continue activity. 3. Repeat white blood cell count. Job ID: [id number]
[2018-05-20] MEDS ORDERED: Benzocaine 20% Spray 60 ML CAN PO PRN (20:47)
[2018-05-20] MEDS: Sodium Chloride 0.9% 1,000 ML IV SCH (21:40)
[2018-05-20] MEDS: Diltiazem HCl 125 MG, Admixture Fee 1 EACH in Sodium Chloride 0.9% 100 ML IVPB SCH (23:44)
[2018-05-21 09:48] LABS: Anion Gap 17 mmol/L (10-20); BUN (Urea Nitrogen) 11 mg/dL (9.8-20.1); Calc. Creatinine Clearance 84 mL/min (70-130); Calcium 8.7 mg/dL (7.8-10.44); Carbon Dioxide 27 mmol/L (23-31); Chloride 101 mmol/L (98-107); Estimated GFR-MDRD Greater than 90; Glucose 79 mg/dL (83-110); Magnesium 1.6 mg/dL (1.6-2.6); Phosphorus 2.1 mg/dL (2.3-4.7); Potassium 3.1 mmol/L (3.5-5.1); Sodium 142 mmol/L (136-145)
[2018-05-21] MEDS: Enoxaparin Sodium 80 MG/0.8 ML SYRINGE SC SCH (10:08)
[2018-05-21 10:09] LABS: Band 2 % (5-11); Burr Cells SLIGHT = 2-5 cells (100X) (0-1/hpf); Crenated RBC SLIGHT = 1-5 cells (100X) (None Seen); Eosinophils 1 % (0-10); Hemoglobin 10.8 g/dL (12.0-16.0); Lymphocytes 3 % (21-51); MDiff Complete? YES; Mean Corpuscular HGB CONC 34.1 g/dL (32.0-36.0); Mean Corpuscular Hemoglobin 36.4 pg (27.0-31.0); Mean Platelet Volume 8.5 fL (7.4-10.4); Monocytes 13 % (0-10); Neutrophil 74 % (42-75); Platelet Count 305 thou/uL (130-400); Platelet Morphology Comment Appears Adequate; Polychromasia SLIGHT = 2-3 cells (100X) (0-2/hpf); RBC Distribution Width 14.3 % (11.5-14.5); Reactive Lymphocytes 7 % (0-10); Red Blood Cell (RBC) Count 2.97 mill/uL (4.20-5.40); White Blood Cell (WBC) Count 23.3 thou/uL (4.8-10.8)
[2018-05-21] MEDS: Digoxin 0.5 MG/2 ML AMP SLOW IVP SCH (10:09)
--- NOTE | 2018-05-21 12:16 | PRG ---
DATE OF SERVICE: 05/21/2018 SUBJECTIVE: This morning, she is better. She said she is less short of breath. She is awaiting Physical Therapy to walk her. Ileus is improved. OBJECTIVE: VITAL SIGNS: Temperature 97.5, saturations are 97% on 3 L, respiratory rate 18, and blood pressure 107/53. CHEST: No wheezing. CARDIAC: Normal S1, S2. . LABORATORY DATA: White count is still elevated to , H and H 10 and 31, platelet count 305. IMPRESSION: Pneumonia, ileus, leukocytosis, severe deconditioning. PLAN: Continue Levaquin, neb treatment, supportive care, PT. Job ID: [id number]
--- NOTE | 2018-05-21 12:58 | PDOC.PN ---
- Subjective Encounter Start Date: 05/21/18 Encounter Start Time: 12:56 Subjective: feels better.only on ice chips.feels abdomen is less distended -: no N/V.no abdo pain -: walked and sat w PT yesterday - Objective Resuscitation Status - Order Detail: 05/12/18 15:37 Resuscitation Status Routine Resuscitation Status: DNAR: NO Resuscitation Discussed with: pow/patient MAR Reviewed: Yes Vital Signs & Weight: Vital Signs (12 hours) Temp Pulse Resp BP BP Pulse Ox 05/21/18 12:00 98.9 F 87 18 102/55 L 97 05/21/18 10:09 84 05/21/18 08:00 97.5 F L 99 18 107/53 L 97 05/21/18 07:09 84 16 94 L 05/21/18 04:00 98 F 99 20 111/56 L 95 Weight Weight 154 lb 9.6 oz Most Recent Monitor Data Heart Rate from ECG 92 NIBP 117/70 NIBP BP-Mean 85 Respiration from ECG 19 SpO2 95 I&O: 05/20/18 05/21/18 05/22/18 06:59 06:59 06:59 Intake Total 0 Output Total 550 Balance -550 Result Diagrams: 05/21/18 09:17 05/21/18 09:17 Additional Labs: Laboratory Tests 05/12/18 05/13/18 05/14/18 12:30 04:02 05:01 WBC 9.3 16.8 H 13.9 H 05/15/18 05/17/18 05/20/18 09:42 06:15 05:16 WBC 15.5 H 18.9 H 25.3 H 05/21/18 09:17 WBC 23.3 H Phys Exam - Physical Examination Constitutional: NAD HEENT: PERRLA, moist MMs, sclera anicteric, oral pharynx no lesions NGT in place,clamped Neck: no nodes, no JVD, supple, full ROM Respiratory: no wheezing, no rales Cardiovascular: RRR, no significant murmur Gastrointestinal: soft, non-tender, no distention, positive bowel sounds Musculoskeletal: no edema, pulses present Neurological: non-focal, normal sensation, moves all 4 limbs Psychiatric: normal affect, A&O x 3 Skin: no rash Dx/Plan (1) Ileus Code(s): K56.7 - ILEUS, UNSPECIFIED Status: Acute Comment: GI note reviewed , appreciated, NGT clamped. PO meds on hold. on BID lovenox,IV CCB drip .CT scan stable..KUB stable. (2) Hypokalemia Code(s): E87.6 - HYPOKALEMIA Status: Acute Comment: Replete, check AML and check AM Mg (3) Chronic atrial fibrillation with RVR Code(s): I48.2 - CHRONIC ATRIAL FIBRILLATION Status: Acute Comment: RVR secondary to medical condition. Presently on IV diltiazem. Digoxin d/c per cardiology. 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 Presently on levaquin. Added bid duonebs scheduled, has q 4 hour available (6) Hypomagnesemia Code(s): E83.42 - HYPOMAGNESEMIA Status: Acute (7) Hyperbilirubinemia Code(s): E80.6 - OTHER DISORDERS OF BILIRUBIN METABOLISM Status: Acute Comment: Inga Lema's in setting of acute illness. AST/ALT WNL. RUQ-US shows no CBD dilatation or CBD stones. (8) Essential hypertension Code(s): I10 - ESSENTIAL (PRIMARY) HYPERTENSION Status: Acute - Plan continue antibiotics, PT/OT, respiratory therapy, incentive spirometry, out of bed/ambulate, DVT proph w/SCDs WBC still high but clinically abdomen better.NGt clamped & tolerating it -: NPO.? advance diet per GI. -: HR controlled.on CCB drip & IV digoxin. -: replace & recheck Lytes. -: encourage ambulation * . Review of Systems - Review of Systems Constitutional: weakness, malaise - Medications/Allergies Allergies/Adverse Reactions: Allergies Allergy/AdvReac Type Severity Reaction Status Date / Time No Known Drug Allergies Allergy Verified 05/16/18 20:58 Medications: Current Medications Al Hydroxide/Mg Hydroxide (Maalox) 30 ml PO Q6H PRN PRN Reason: Indigestion Albuterol/Ipratropium (Duoneb) 3 ml NEB V0NL-QH PRN PRN Reason: SOB &/or Wheezing Last Admin: 05/15/18 15:20 Dose: 3 ml Albuterol/Ipratropium (Duoneb) 3 ml NEB Q4H PRN PRN Reason: SOB &/or Wheezing Albuterol/Ipratropium (Duoneb) 3 ml NEB BID-RT [facility] Last Admin: 05/21/18 07:09 Dose: 3 ml Benzocaine (Hurricane 20% [place]) 0 ml PO Q8H PRN PRN Reason: . Last Admin: 05/20/18 21:43 Dose: 1 spr Digoxin (Lanoxin) 0.25 mg SLOW IVP DAILY [facility] Last Admin: 05/21/18 10:09 Dose: 0.25 mg Enoxaparin Sodium (Lovenox) 70 mg SC 0900,2100 [facility] Last Admin: 05/21/18 10:08 Dose: 70 mg Guaifenesin/Dextromethorphan (Robitussin Dm) 10 ml PO Q6H PRN PRN Reason: Cough Last Admin: 05/16/18 06:19 Dose: 10 ml Levofloxacin 500 mg/ Device 100 mls @ 100 mls/hr IVPB Q24HR [facility] Last Admin: 05/20/18 17:58 Dose: 100 mls Diltiazem HCl 125 mg/Miscellaneous Medication 1 each/ Sodium Chloride 125 mls @ 0 mls/hr IVPB INF [facility]; Protocol Last Admin: 05/20/18 23:44 Dose: 125 mls Sodium Chloride (Normal Saline 0.9%) 1,000 mls @ 20 mls/hr IV .Q24H [facility] Last Admin: 05/20/18 21:40 Dose: Not Given Potassium Phosphate 9 mmol/ (Sodium Chloride) 103 mls @ 25 mls/hr IVPB ONE [facility] Ondansetron HCl (Zofran Odt) 4 mg PO Q6H PRN PRN Reason: Nausea/Vomiting Last Admin: 05/16/18 01:52 Dose: 4 mg Ondansetron HCl (Zofran) 4 mg IVP Q6H PRN PRN Reason: Nausea/Vomiting Last Admin: 05/18/18 05:44 Dose: 4 mg Pantoprazole Sodium (Protonix) 40 mg PO DAILY [facility] Last Admin: 05/21/18 10:08 Dose: 40 mg Sodium Chloride (Flush - Normal Saline) 10 ml IVF Q12HR [facility] Last Admin: 05/21/18 10:10 Dose: 10 ml Sodium Chloride (Flush - Normal Saline) 10 ml IVF PRN PRN PRN Reason: Saline Flush Last Admin: 05/18/18 09:45 Dose: 10 ml Sodium Chloride (Flush - Normal Saline) 10 ml IV DAILY [facility] Last Admin: 05/21/18 10:10 Dose: Not Given
[2018-05-21] MEDS ORDERED: Potassium Phosphate 9 MMOL in Sodium Chloride 0.9% 100 ML IVPB SCH (13:30)
--- NOTE | 2018-05-21 14:27 | PRG ---
DATE OF SERVICE: 05/21/2018 SUBJECTIVE: The patient is feeling better. She is having bowel movements. She has not had any nausea or vomiting. OBJECTIVE: VITAL SIGNS: Temperature 97.5, pulse 84, respiratory rate 18, and blood pressure 102/55. NG output is none since NG was clamped. CHEST: Clear. CARDIOVASCULAR: Regular rate and rhythm. ABDOMEN: Soft, nontender, without organomegaly or masses. Bowel sounds are present. LABORATORY DATA: White blood cell count of 23.3, hemoglobin 10.8, hematocrit 31.7. Chemistry shows potassium 3.1 and phosphorus 2.1. ASSESSMENT: 1. Ileus - seems to be resolving. She tolerated the clamping of her NG tube over the last 24 hours. 2. Atrial fibrillation. 3. Pneumonia. 4. Leukocytosis. RECOMMENDATIONS: 1. Discontinue nasogastric tube. 2. Begin a trial of clear liquids. Job ID: [id number]
[2018-05-21] MEDS: Sodium Chloride 0.9% 1,000 ML IV SCH (21:22)
[2018-05-21 22:09] LABS: Hemoglobin 9.9 g/dL (12.0-16.0); Platelet Count 302 thou/uL (130-400)
[2018-05-22 06:02] LABS: Anion Gap 14 mmol/L (10-20); BUN (Urea Nitrogen) 11 mg/dL (9.8-20.1); Calc. Creatinine Clearance 80 mL/min (70-130); Calcium 8.4 mg/dL (7.8-10.44); Carbon Dioxide 29 mmol/L (23-31); Chloride 99 mmol/L (98-107); Estimated GFR-MDRD Greater than 90; Glucose 89 mg/dL (83-110); Magnesium 1.6 mg/dL (1.6-2.6); Phosphorus 2.4 mg/dL (2.3-4.7); Potassium 3.4 mmol/L (3.5-5.1); Sodium 139 mmol/L (136-145)
[2018-05-22 06:14] LABS: Hemoglobin 9.8 g/dL (12.0-16.0); Hypochromia SLIGHT = 6-15 cells (100X) (0-5/hpf); Lymphocytes 6 % (21-51); MDiff Complete? YES; Macrocytosis SLIGHT = 6-15 cells (100X) (0-5/hpf); Mean Corpuscular HGB CONC 33.6 g/dL (32.0-36.0); Mean Platelet Volume 8.8 fL (7.4-10.4); Monocytes 12 % (0-10); Neutrophil 82 % (42-75); Nucleated RBC 1 % (0); Platelet Count 297 thou/uL (130-400); Platelet Morphology Comment Appears Adequate; RBC Distribution Width 14.4 % (11.5-14.5); Red Blood Cell (RBC) Count 2.73 mill/uL (4.20-5.40); White Blood Cell (WBC) Count 21.5 thou/uL (4.8-10.8)
[2018-05-22] MEDS: Digoxin 0.25 MG TAB PO SCH (08:53)
[2018-05-22] MEDS: Rivaroxaban 10 MG TAB PO SCH (08:53)
--- NOTE | 2018-05-22 09:59 | PRG ---
DATE OF SERVICE: 05/22/2018 SUBJECTIVE: The patient is feeling well. She is up in a chair. She has no complaints. OBJECTIVE: VITAL SIGNS: Temperature 98.3, pulse 94, respirations 16, O2 sat 96% on 2 L, blood pressure 134/62. HEENT: Unremarkable. NECK: No JVD. CHEST: Clear anteriorly. CARDIAC: S1, S2. Regular. ABDOMEN: Soft. Bowel sounds are hypoactive. EXTREMITIES: No edema. ASSESSMENT: 1. Pneumonia. 2. Ileus. PLAN: Both of these are better. She can switch over to oral antibiotics in the meantime. Hopefully, discharge soon. Job ID: [id number]
--- NOTE | 2018-05-22 10:03 | PDOC.PN ---
- Subjective Encounter Start Date: 05/22/18 Encounter Start Time: 10:00 Ms. Blunt was seen today in follow-up of Pneumonia and ileus. She is sitting up in a chair, and says she feels much better. - Objective Resuscitation Status - Order Detail: 05/12/18 15:37 Resuscitation Status Routine Resuscitation Status: DNAR: NO Resuscitation Discussed with: pow/patient MAR Reviewed: Yes Vital Signs & Weight: Vital Signs (12 hours) Temp Pulse Resp BP Pulse Ox 05/22/18 08:53 92 05/22/18 07:20 98.3 F 94 16 134/62 96 05/22/18 07:09 85 14 05/22/18 04:00 98.0 F 91 18 102/56 L 05/22/18 00:00 66 18 100/53 L 96 Weight Weight 155 lb 5 oz Most Recent Monitor Data Heart Rate from ECG 92 NIBP 117/70 NIBP BP-Mean 85 Respiration from ECG 19 SpO2 95 I&O: 05/21/18 05/22/18 05/23/18 06:59 06:59 06:59 Intake Total 0 770 Output Total 550 450 Balance -550 320 Result Diagrams: 05/22/18 05:15 05/22/18 05:15 Phys Exam - Physical Examination HEENT: PERRLA Respiratory: no wheezing, no rales, clear to auscultation bilateral + coarse breath sounds, and some scattered rhonchi Cardiovascular: RRR, no significant murmur, no rub Gastrointestinal: soft, non-tender, no distention, positive bowel sounds Musculoskeletal: no edema Dx/Plan (1) Ileus Code(s): K56.7 - ILEUS, UNSPECIFIED Status: Acute Comment: GI note reviewed , appreciated, NGT clamped. PO meds on hold. on BID lovenox,IV CCB drip .CT scan stable..KUB stable. (2) Pneumonia Code(s): J18.9 - PNEUMONIA, UNSPECIFIED ORGANISM Status: Acute Qualifiers: Pneumonia type: due to unspecified organism Comment: Community acquired, present on admission. Presently on levaquin. Added bid duonebs scheduled, has q 4 hour available (3) Chronic atrial fibrillation with RVR Code(s): I48.2 - CHRONIC ATRIAL FIBRILLATION Status: Chronic Comment: RVR secondary to medical condition. Presently on IV diltiazem. Digoxin d/c per cardiology. d/johann losartan to allow titration CCB, also due to interval placement NGT (4) Essential hypertension Code(s): I10 - ESSENTIAL (PRIMARY) HYPERTENSION Status: Chronic (5) Physical deconditioning Code(s): R53.81 - OTHER MALAISE Status: Acute - Plan * Ileus- she has a history of previous small bowel and colon resection- she is currently on a clear liquid diet- advance as per GI * Pneumonia- continue Levaquin. * AFIB- her heart rate is controlled on Cardizem and Digoxin * She is on Xarelto for CVA prevention * HTN- blood pressure is stable * Continue PT/OT
--- NOTE | 2018-05-22 14:18 | PRG ---
DATE OF SERVICE: 05/22/2018 SUBJECTIVE: Ms. Blunt had her NG tube taken out. She is tolerating liquid diet. She is having bowel movements little bit of diarrhea. OBJECTIVE: VITAL SIGNS: Temperature is 97.8, pulse 80, blood pressure is 130/72. LUNGS: Clear. HEART: Regular rhythm. ABDOMEN: Slightly protuberant. There is no tenderness. There is no rebound. Bowel sounds are more . LABORATORY DATA: White count 21,000, hemoglobin 9.8, platelet count 297. Sodium 139, potassium 3.4, BUN and creatinine are 11 and 0.58, phosphorous 2.4, magnesium 1.6. ASSESSMENT: 1. Pneumonia, resolved. 2. Partial bowel obstruction verus ileus. This probes to be an ileus, resolving, starting liquid diet. 3. Atrial fibrillation. RECOMMENDATIONS: 1. Advance diet as tolerated. 2. The patient notes she has had history of chronic diarrhea. At discharge, she is eating regular diet. Consider use of Colestid 1 g daily. He needs to take it 2 hours before or after other medications. They will inhibit absorption of other medicines if taken at the same time. Job ID: [id number]
[2018-05-22 22:35] LABS: Calc. Creatinine Clearance 79 mL/min (70-130); Estimated GFR-MDRD Greater than 90
[2018-05-23] MEDS: Sodium Chloride 0.9% 1,000 ML IV SCH ×2 (00:22→20:31)
[2018-05-23 05:36] LABS: Band 14 % (5-11); Hemoglobin 9.5 g/dL (12.0-16.0); Lymphocytes 9 % (21-51); MDiff Complete? YES; Mean Corpuscular HGB CONC 33.3 g/dL (32.0-36.0); Mean Corpuscular Hemoglobin 35.5 pg (27.0-31.0); Mean Platelet Volume 8.4 fL (7.4-10.4); Metamyelocyte 3 % (0-0); Monocytes 11 % (0-10); Neutrophil 62 % (42-75); Platelet Count 330 thou/uL (130-400); Platelet Morphology Comment Appears Adequate; RBC Distribution Width 14.8 % (11.5-14.5); Red Blood Cell (RBC) Count 2.67 mill/uL (4.20-5.40); Schistocytes SLIGHT = 2-5 cells (100X) (0-1/hpf); White Blood Cell (WBC) Count 22.9 thou/uL (4.8-10.8)
[2018-05-23 05:53] LABS: Digoxin 1.35 ng/mL (0.8-2.0)
[2018-05-23] MEDS: Digoxin 0.25 MG TAB PO SCH (08:33)
[2018-05-23] MEDS: Rivaroxaban 10 MG TAB PO SCH (08:33)
[2018-05-23 12:00] VITALS: BMI 25.8
--- NOTE | 2018-05-23 12:04 | PRG ---
DATE OF SERVICE: 05/23/2018 SUBJECTIVE: Ms. Blunt feels better, had no acute complaints. OBJECTIVE: VITAL SIGNS: Temperature 97.9, pulse 100, respirations 14, O2 saturations 96% on 2 L, and blood pressure 109/59. HEENT: Unremarkable. NECK: No adenopathy, JVD, or bruits. LUNGS: Fairly clear. CARDIAC: S1 and S2, regular. ABDOMEN: Soft. EXTREMITIES: No edema. LABORATORY DATA: White blood cell count 22.9, hematocrit 28.5, and platelet count 330. Sodium 139, potassium 3.4, BUN 11, creatinine 0.5, and glucose 89. ASSESSMENT: 1. Pneumonia, which has improved. 2. Chronic hypoxic respiratory failure, which is improved. PLAN: The patient is cleared to go home from Pulmonary standpoint. I would finish up a total of 10 days of antibiotics. No further recommendations at this time. Job ID: [id number]
--- NOTE | 2018-05-23 12:12 | PRG ---
DATE OF SERVICE: 05/23/2018 SUBJECTIVE: Ms. Blunt is still doing well with her NG tube out. She, however, just ate ice cream last night and had coffee this morning. She states that her stomach hurt a little bit in the epigastrium. She is afraid to eat. She has had no vomiting. She has had bowel movements, which are a little bit soft and loose. She has no melena, hematochezia, or hematemesis. She states that she is breathing well. OBJECTIVE: VITAL SIGNS: Temperature is 97.9, pulse 74, and blood pressure 109/59. GENERAL: She is sitting up in bed. LUNGS: Clear. HEART: Regular rhythm. ABDOMEN: Soft and nontender. Slightly protuberant epigastrium. There is no rebound. There is no guarding. Bowel sounds are scant. EXTREMITIES: No clubbing, cyanosis, or edema. LABORATORY STUDIES: White count 22,000, hemoglobin 9.5, platelet count 330. She has 62 segs and 14% bands. No electrolytes today. Digoxin on the was 1.35. ASSESSMENT: 1. Ileus resolving, still not much of an appetite. 2. Pneumonia. This seems to be doing better. 3. Persistent leukocytosis. The etiology of this is really unclear. 4. Loose stools, likely related to her antibiotics. If these that would be great. We will go and check her stool for Clostridium difficile. 5. Advance diet as tolerated. Job ID: [id number]
--- NOTE | 2018-05-23 15:24 | PDOC.PN ---
- Subjective Encounter Start Date: 05/23/18 Encounter Start Time: 10:00 Ms. Blunt was seen today in follow-up of ileus and pneumonia. She is sitting up when I saw her. She notes a little abdominal soreness earlier, but she attributes this to getting up with PT. She also has had a loose stool. - Objective Resuscitation Status - Order Detail: 05/12/18 15:37 Resuscitation Status Routine Resuscitation Status: DNAR: NO Resuscitation Discussed with: pow/patient MAR Reviewed: Yes Vital Signs & Weight: Vital Signs (12 hours) Temp Pulse Pulse Pulse Resp BP BP 05/23/18 11:57 97.4 F L 88 16 05/23/18 10:45 97 95 103/61 102/60 05/23/18 08:33 100 05/23/18 07:39 90 14 05/23/18 07:25 97.9 F 94 18 BP BP Pulse Ox Pulse Ox Pulse Ox 05/23/18 11:57 104/64 96 05/23/18 10:45 98 98 05/23/18 08:33 05/23/18 07:39 05/23/18 07:25 109/59 L 96 Weight Admit Weight 154 lb Weight 160 lb 3 oz Most Recent Monitor Data Heart Rate from ECG 92 NIBP 117/70 NIBP BP-Mean 85 Respiration from ECG 19 SpO2 95 I&O: 05/22/18 05/23/18 05/24/18 06:59 06:59 06:59 Intake Total 770 1146 Output Total 450 780 Balance 320 366 Result Diagrams: 05/23/18 05:07 05/22/18 22:05 Phys Exam - Physical Examination HEENT: PERRLA Respiratory: no wheezing, no rales, no rhonchi, clear to auscultation bilateral Cardiovascular: RRR, no significant murmur, no rub Gastrointestinal: soft, non-tender, no distention, positive bowel sounds Musculoskeletal: no edema Dx/Plan (1) Ileus Code(s): K56.7 - ILEUS, UNSPECIFIED Status: Acute Comment: GI note reviewed , appreciated, NGT clamped. PO meds on hold. on BID lovenox,IV CCB drip .CT scan stable..KUB stable. (2) Pneumonia Code(s): J18.9 - PNEUMONIA, UNSPECIFIED ORGANISM Status: Acute Qualifiers: Pneumonia type: due to unspecified organism Comment: Community acquired, present on admission. Presently on levaquin. Added bid duonebs scheduled, has q 4 hour available (3) Chronic atrial fibrillation with RVR Code(s): I48.2 - CHRONIC ATRIAL FIBRILLATION Status: Chronic Comment: RVR secondary to medical condition. Presently on IV diltiazem. Digoxin d/c per cardiology. d/johann losartan to allow titration CCB, also due to interval placement NGT (4) Essential hypertension Code(s): I10 - ESSENTIAL (PRIMARY) HYPERTENSION Status: Chronic (5) Physical deconditioning Code(s): R53.81 - OTHER MALAISE Status: Acute - Plan * Ileus- resolving- her diet has been advanced to a full liquid diet * Pneumonia- she has completed 10 days of antibiotics, and her symptoms are minimal * Atrial Fibrillation- her heart rate is stable * HTN- blood pressure is stable * Continue PT/OT.
[2018-05-23 22:28] LABS: Hemoglobin 9.5 g/dL (12.0-16.0); Platelet Count 350 thou/uL (130-400)
[2018-05-24 05:52] LABS: #Eosinphils 0.7 thou/uL (0.0-0.7); #Monocytes 3.4 thou/uL (0.11-0.59); #Neutrophils 17.7 thou/uL (1.40-6.50); %Basophils 0.1 % (0.0-1.0); %Eosinophils 2.8 % (0.0-10.0); %Lymphocytes 8.3 % (21.0-51.0); %Monocytes 14.2 % (0.0-10.0); %Neutrophils 74.6 % (42.0-75.0); Hemoglobin 8.9 g/dL (12.0-16.0); Mean Corpuscular HGB CONC 33.7 g/dL (32.0-36.0); Mean Corpuscular Hemoglobin 35.4 pg (27.0-31.0); Mean Platelet Volume 8.5 fL (7.4-10.4); Platelet Count 322 thou/uL (130-400); RBC Distribution Width 15.2 % (11.5-14.5); Red Blood Cell (RBC) Count 2.53 mill/uL (4.20-5.40); White Blood Cell (WBC) Count 23.8 thou/uL (4.8-10.8)
[2018-05-24] MEDS: Digoxin 0.25 MG TAB PO SCH (08:51)
[2018-05-24] MEDS: Rivaroxaban 10 MG TAB PO SCH (08:52)
--- NOTE | 2018-05-24 10:01 | PRG ---
DATE OF SERVICE: 05/24/2018 SUBJECTIVE: She feels well and wants to go to rehab. OBJECTIVE: VITAL SIGNS: Temperature 97.6, pulse 92, respiratory rate 20, O2 sat 99% on 2 L, and blood pressure 102/57. HEENT: Unremarkable. NECK: No JVD. CHEST: Clear. CARDIAC: S1 and S2, regular. ABDOMEN: Soft. EXTREMITIES: No edema. LABORATORY: White blood cell count 23.9, hematocrit 26.5, and platelet count 332. ASSESSMENT: 1. Ileus, resolved. 2. Pneumonia, better. PLAN: Finish out 10 days antibiotics. No further Pulmonary recommendations. Job ID: [id number]
--- NOTE | 2018-05-24 16:01 | PDOC.PN ---
- Subjective Encounter Start Date: 05/24/18 Encounter Start Time: 11:00 Ms. Blunt was seen today in follow-up of ileus, and elevated WBC count. The patient is sitting up in a chair. She notes some mild abdominal soreness, otherwise no complaints. She denies nausea or vomiting. - Objective Resuscitation Status - Order Detail: 05/12/18 15:37 Resuscitation Status Routine Resuscitation Status: DNAR: NO Resuscitation Discussed with: pow/patient MAR Reviewed: Yes Vital Signs & Weight: Vital Signs (12 hours) Temp Pulse Pulse Pulse Resp BP BP 05/24/18 11:57 98.1 F 91 20 05/24/18 09:33 80 99 146/65 H 102/51 L 05/24/18 08:51 92 05/24/18 07:34 97.6 F 99 20 05/24/18 07:28 85 18 BP Pulse Ox Pulse Ox Pulse Ox 05/24/18 11:57 104/60 96 05/24/18 09:33 95 98 05/24/18 08:51 05/24/18 07:34 102/57 L 99 05/24/18 07:28 93 L Weight Admit Weight 154 lb Weight 163 lb Most Recent Monitor Data Heart Rate from ECG 92 NIBP 117/70 NIBP BP-Mean 85 Respiration from ECG 19 SpO2 95 I&O: 05/23/18 05/24/18 05/25/18 06:59 06:59 06:59 Intake Total 1146 960 Output Total 780 1250 Balance 366 -290 Result Diagrams: 05/24/18 04:47 05/22/18 22:05 Phys Exam - Physical Examination HEENT: PERRLA Respiratory: no wheezing, no rales, no rhonchi, clear to auscultation bilateral Cardiovascular: RRR, no significant murmur, no rub Gastrointestinal: soft, non-tender, no distention, positive bowel sounds Musculoskeletal: pulses present, edema present Neurological: non-focal Dx/Plan (1) Ileus Code(s): K56.7 - ILEUS, UNSPECIFIED Status: Acute Comment: GI note reviewed , appreciated, NGT clamped. PO meds on hold. on BID lovenox,IV CCB drip .CT scan stable..KUB stable. (2) Pneumonia Code(s): J18.9 - PNEUMONIA, UNSPECIFIED ORGANISM Status: Acute Qualifiers: Pneumonia type: due to unspecified organism Comment: Community acquired, present on admission. Presently on levaquin. Added bid duonebs scheduled, has q 4 hour available (3) Chronic atrial fibrillation with RVR Code(s): I48.2 - CHRONIC ATRIAL FIBRILLATION Status: Chronic Comment: RVR secondary to medical condition. Presently on IV diltiazem. Digoxin d/c per cardiology. d/johann losartan to allow titration CCB, also due to interval placement NGT (4) Essential hypertension Code(s): I10 - ESSENTIAL (PRIMARY) HYPERTENSION Status: Chronic (5) Physical deconditioning Code(s): R53.81 - OTHER MALAISE Status: Acute - Plan * Ileus- this is resolving. She is tolerating her diet so far * Pneumonia- resolved- she has completely a full course of antibiotics * Leukocytosis- Etiology is unclear- this has been persistent since admission The pneumonia is resolving, and the C. Diff was negative. She appears well. Will consult ID however, prior to transferring to the swing bed. * AFIB- her heart rate is stable * HTN- blood pressure is stable
[2018-05-24] MEDS: Sodium Chloride 0.9% 1,000 ML IV SCH (20:08)
--- NOTE | 2018-05-24 21:36 | CON ---
DATE OF CONSULTATION: REASON FOR CONSULTATION: Persistent neutrophilia. HISTORY OF PRESENT ILLNESS: An 83-year-old with history of diverticulosis, atrial fibrillation, previous episodes of SBO, and breast cancer, in remission, who has a history of splenectomy as well because she "had a splenic cyst" in the past. She was brought in with hypotension, cough, and rattling in her chest. No reported headaches. No fever or chills. No abdominal pain or diarrhea. No genitourinary symptoms. PAST MEDICAL HISTORY: 1. Diverticulosis. 2. Atrial fibrillation. 3. SBO. 4. Breast cancer, in remission. PAST SURGICAL HISTORY: 1. Previous hemicolectomy with reanastomosis. 2. Radical mastectomy, left side. 3. Cholecystectomy. 4. Appendectomy. 5. Hysterectomy. 6. Splenectomy. 7. Colonoscopy. ALLERGIES: NONE. FAMILY HISTORY: CVA. SOCIAL HISTORY: Former smoker. No alcoholic beverages. ALLERGIES: NONE. MEDICATION LIST: 1. DuoNeb. 2. Lanoxin. 3. Cardizem. 4. Robitussin. 5. Zofran. 6. Protonix. PHYSICAL EXAMINATION: VITAL SIGNS: The patient has been afebrile through the hospital stay. BP 102/ 51, pulse 91, respirations 20, O2 saturation 96% on 2 L nasal cannula. SKIN: Area of bruising and pressure injury to the right first MPJ skin site. She has a peripheral IV access and is urinating in a bedside commode. LYMPH: No lymphadenopathy. HEENT: Ocular movements conjugate. Oral cavity normal. NECK: Supple. LUNGS: Symmetric. Clear breath sounds. HEART: S1, S2 with a soft aortic murmur. Regular rate. ABDOMEN: Soft. Not distended or tender. No ascites. No bladder distention. EXTREMITIES: No joint inflammatory activity. Trace edema, lower extremities. Pulses 1+ dorsalis pedis. NEUROLOGIC: Oriented. Follows commands. LABORATORY DATA: White cell count was 23.3, actually on arrival, she was 9.3 with 4% bands and steadily went up to 25,000, now it is down to 23.8; hemoglobin is at 8.9; and platelet count is 322, which is fairly stable from admission. Differential shows 74% neutrophils, 8% lymphocytes, 40% monocytes. Chemistry with sodium 139 , creatinine 0.63. Liver profile, normal. Albumin 3.3, globulin 3.4. Urinalysis with trace protein, negative glucose, small bilirubin, 11-20 rbc's, 0-3 wbc's. Digoxin 1.28. Microbiology; C diff negative. IMAGING STUDIES: We have a number of x-rays. We have a chest x-ray, which demonstrated opacity in right chest appears to be somewhat associated with volume loss concerning for pneumonia and atelectasis. CT of chest angio with thickened and diffuse pericardial fat. No pulmonary embolism. This appears to be worse compared with January 06, 2012 pericardial effusion up to 1-cm in maximal thickness, small lesser pleural effusion, nonspecific parenchymal changes, polysplenia, fat- replaced pancreas. Abdomen and pelvis CT with distended loops of proximal jejunum and colon, but no transition point. Bilateral adrenal nodules. Small bilateral pleural effusions. ASSESSMENT: History of atrial fibrillation, previous SBO, breast cancer in remission, cholecystectomy, appendectomy, who comes in with respiratory symptoms , which have been managed with levofloxacin, which she took for quite a few days and now that has been discontinued. The reason that we were consulted is because of persistence of neutrophil elevation following the admission. DISCUSSION: Differential diagnosis includes neutrophilia associated with splenectomy. Typically, neutrophilia after splenectomy subsides over time. It is not clear to me when the surgery was done, but maybe with the acute infection, there has been hidden response to the stimuli from the infectious process. The other possibility would be an underlying cause of neutrophilia associated with pericardial lipomatosis such as excessive endogenous corticosteroid production. I do not see any record of her taking corticosteroids, which can also be associated with mediastinal and pericardial lipomatosis. I would consider checking her for that before excessive cortisolism with free urinary cortisol level or cortisol level in the saliva. It is less likely the patient has an uncontrolled infectious process at this time. Job ID: [id number] MTDD
[2018-05-24 22:23] LABS: Calc. Creatinine Clearance 84 mL/min (70-130); Estimated GFR-MDRD Greater than 90
[2018-05-25 05:46] LABS: Band 4 % (5-11); Hemoglobin 8.7 g/dL (12.0-16.0); Lymphocytes 4 % (21-51); MDiff Complete? YES; Mean Corpuscular HGB CONC 32.5 g/dL (32.0-36.0); Mean Corpuscular Hemoglobin 34.6 pg (27.0-31.0); Mean Platelet Volume 8.2 fL (7.4-10.4); Metamyelocyte 1 % (0-0); Monocytes 5 % (0-10); Myelocyte 1 % (0-0); Neutrophil 85 % (42-75); Platelet Count 335 thou/uL (130-400); Platelet Morphology Comment Appears Adequate; RBC Distribution Width 15.7 % (11.5-14.5); Red Blood Cell (RBC) Count 2.52 mill/uL (4.20-5.40); White Blood Cell (WBC) Count 26.5 thou/uL (4.8-10.8)
[2018-05-25] MEDS: Digoxin 0.25 MG TAB PO SCH (09:18)
[2018-05-25] MEDS: Rivaroxaban 10 MG TAB PO SCH (09:18)
--- NOTE | 2018-05-25 09:21 | PRG ---
DATE OF SERVICE: 05/24/2018 SUBJECTIVE: Ms. Blunt is sitting up. She is eating some malts, but does not have much of an appetite. She denies any pain, however, trying to eat. OBJECTIVE: VITAL SIGNS: Temperature is 98, pulse 87, and blood pressure is 108/66. LUNGS: Clear. HEART: Regular rate and rhythm. ABDOMEN: Slightly protuberant, soft, nontender. There is no palpable mass . There are no overt hernias. LABORATORY DATA: White count is still 23,000, hemoglobin is 8.9, platelet count is 322. No overt bands on differential. ASSESSMENT: 1. Pneumonia, resolving. 2. Partial bowel obstruction versus ileus, seems to be an ileus related to infection that seems to be resolving. She does not have an appetite. Reviewing her CAT scan, there are no overt signs of ischemia. She has no gallbladder. The liver is not nodular. PLAN: Agree with antibiotics for 10 days. Apparently, Dr. Forrest is going to come and see the patient tomorrow. If she does not start eating better with the next week or so, we can consider endoscopy. I would treat her empirically with PPI. However, this time would not embark on endoscopy as she is just getting over pneumonia. She is high risk for respiratory complications. Job ID: [id number]
--- NOTE | 2018-05-25 09:42 | PRG ---
DATE OF SERVICE: 05/25/2018 SUBJECTIVE: Ms. Blunt is sitting up in a chair. She is in no distress. She has no complaints. OBJECTIVE: VITAL SIGNS: Temperature 97.5, pulse 87, respirations 18, O2 saturation 93% on 2 L, blood pressure 97/50. HEENT: Unremarkable. NECK: No adenopathy or JVD. LUNGS: Clear anteriorly. CARDIAC: S1, S2. Regular. ABDOMEN: Soft. EXTREMITIES: No edema. LABORATORY DATA: White count is 26.5, hematocrit 26.8, and platelet count 335. ASSESSMENT: 1. Status post pneumonia. 2. Persistently elevated white count. 3. Status post ileus. PLAN: I will go ahead and have another chest x-ray performed today just to make sure we are not dealing with some kind of loculated effusion. Job ID: [id number]
--- NOTE | 2018-05-25 10:28 | RAD ---
CHEST ONE VIEW: History: Pneumonia. Follow up. Comparison: 05-12-18 FINDINGS: Cardiac silhouette remains obscured by bibasilar infiltrates and pleural fluid, right greater than le ft. Opacity at the right base has increased, now with more obscuration of the right hemidiaphragm. Some atelectasis of the right lung with rightward shift of the mediastinum. Calcification in the celina rial structures. No evidence of pneumothorax. manager ct leads overlie the chest. IMPRESSION: 1. Worsening right pleural fluid and basilar atelectasis. 2. Other findings are stable. POS: GA
--- NOTE | 2018-05-25 10:46 | PDOC.PN ---
- Subjective Encounter Start Date: 05/25/18 Encounter Start Time: 10:44 Ms. Blunt was seen today in follow-up of pneumonia and ileus. She does not have any complaints. - Objective Resuscitation Status - Order Detail: 05/12/18 15:37 Resuscitation Status Routine Resuscitation Status: DNAR: NO Resuscitation Discussed with: pow/patient MAR Reviewed: Yes Vital Signs & Weight: Vital Signs (12 hours) Temp Pulse Resp BP Pulse Ox 05/25/18 09:18 87 05/25/18 07:30 97.5 F L 87 18 97/50 L 95 05/25/18 06:33 88 18 98 05/25/18 04:25 97.9 F 96 18 111/55 L 96 05/24/18 23:35 101 H 20 100/51 L 99 Weight Admit Weight 154 lb Weight 160 lb Most Recent Monitor Data Heart Rate from ECG 92 NIBP 117/70 NIBP BP-Mean 85 Respiration from ECG 19 SpO2 95 I&O: 05/24/18 05/25/18 05/26/18 06:59 06:59 06:59 Intake Total 960 120 Output Total 1250 400 Balance -290 -280 Result Diagrams: 05/25/18 04:59 05/24/18 21:48 Phys Exam - Physical Examination HEENT: PERRLA Respiratory: no wheezing, no rales, no rhonchi, clear to auscultation bilateral Cardiovascular: RRR, no significant murmur, no rub Gastrointestinal: soft, non-tender, no distention, positive bowel sounds Musculoskeletal: no edema, pulses present Dx/Plan (1) Ileus Code(s): K56.7 - ILEUS, UNSPECIFIED Status: Acute Comment: GI note reviewed , appreciated, NGT clamped. PO meds on hold. on BID lovenox,IV CCB drip .CT scan stable..KUB stable. (2) Pneumonia Code(s): J18.9 - PNEUMONIA, UNSPECIFIED ORGANISM Status: Acute Qualifiers: Pneumonia type: due to unspecified organism Comment: Community acquired, present on admission. Presently on levaquin. Added bid duonebs scheduled, has q 4 hour available (3) Chronic atrial fibrillation with RVR Code(s): I48.2 - CHRONIC ATRIAL FIBRILLATION Status: Chronic Comment: RVR secondary to medical condition. Presently on IV diltiazem. Digoxin d/c per cardiology. d/johann losartan to allow titration CCB, also due to interval placement NGT (4) Essential hypertension Code(s): I10 - ESSENTIAL (PRIMARY) HYPERTENSION Status: Chronic (5) Physical deconditioning Code(s): R53.81 - OTHER MALAISE Status: Acute - Plan * Ileus- resolved * Pneumonia- resolved * Leukocytosis- ID input appreciated- will check a 24 hour urine for free cortisol. This can be done at the [facility] bed * HTN- blood pressure is stable.
--- NOTE | 2018-05-25 15:38 | PRG ---
DATE OF SERVICE: 05/25/2018 SUBJECTIVE: Ms. Blunt does not take her oral medicines. She is on a full liquid diet. I have advanced her. She states her appetite is improving. OBJECTIVE: VITAL SIGNS: Temperature is 98, pulse 76, blood pressure 101/58, pulse 107, and O2 saturation 94% on 2 L on room air. LUNGS: Clear. Decreased breath sounds at bases. ABDOMEN: Soft and nontender. LABORATORY DATA: White count is 26,000, hemoglobin is 8.7, and platelet count is 335. Basic metabolic profile is normal. C diff 2 days ago was negative. ASSESSMENT: 1. Ileus versus partial bowel obstruction, resolved, so this is ileus related pneumonia. 2. Poor appetite. This is improving today. Reviewing old records, she has had a colonoscopy in the last 5 years, which was normal. She did have an ulcer about 2 years ago, which was large in the stomach and bleeding. She has been on PPI since she has been here. She is beginning to eat better. I think, we can hold off on any further intervention such as endoscopy with pneumonia and having a large pleural effusion. They could be best, we can hold off on that and with her being having more of an appetite now, I think she is making a turn for the better. If symptoms were reversed, we could consider an endoscopy if she returns. Otherwise, I have asked her to follow up my office in about 2 to 3 weeks. 3. Pneumonia. White count is worsening. CAT scan of the abdomen and pelvis revealed no evidence of infection or abscesses earlier in the hospitalization. This is likely due to resolving pneumonia, for which I talked with software tools engineer. This can take a little bit of time. She does have a significant effusion, but there is no respiratory embarrassment. RECOMMENDATIONS: 1. Continue PPI. 2. Follow up in my office in 4 to 6 weeks sooner for issues. If she returns to the hospital, I will be more happy to see her and re-evaluate, otherwise . Job ID: [id number]
[2018-05-25 16:05] VITALS: BP 112/58; TEMP 98.2
--- NOTE | 2018-05-26 03:14 | DIS ---
DATE OF ADMISSION: 05/12/2018 DATE OF DISCHARGE: 05/25/2018 PRIMARY CARE PHYSICIAN: Joshua Maldonado DO. DISCHARGE DISPOSITION: [place] [facility]. DISCHARGE DIAGNOSES: 1. Community-acquired pneumonia. 2. Ileus, resolved. 3. Permanent atrial fibrillation. 4. Acute respiratory failure with hypoxemia secondary to #1. DISCHARGE MEDICATIONS: Include, 1. Diltiazem 180 mg daily. 2. Xarelto 20 mg q.p.m. 3. Digoxin 0.25 mg daily. PROCEDURES DONE DURING THE ADMISSION: The patient had a CT angiogram of the chest showing no convincing evidence for pulmonary embolism. There is some prominent diffuse pericardial fat completely surrounding the heart and some non-specific parenchymal changes, and multiple adrenal nodules. The patient also had an echocardiogram, had an ejection fraction of 65%, some probable diastolic dysfunction. The patient had a CT scan of the abdomen and pelvis, showing distended loops of bowel in the jejunum and colon and bilateral adrenal nodules. HOSPITAL COURSE: Ms. Blunt is a very pleasant 83-year-old female who presented to the emergency room complaining of cough and shortness of breath. She was hypoxic when she had seen her primary care physician. She was sent to the emergency room where she was admitted. A relay man was consulted. She was placed on broad-spectrum IV antibiotics with good results. However, during the course of her admission, she had significant abdominal pain and was noted to have an ileus versus a partial small-bowel obstruction. She was made n.p.o. and placed with bowel rest and this actually resolved over the course of the next couple of days. Her labels molder was also consulted with regard to permanent atrial fibrillation and her medications were slightly adjusted. She was noted to have a persistent leukocytosis. For this reason, ID was consulted. Acute infection was ruled out. However, I was concerned that she might have a mediastinal and pericardial lipomatosis which may be contributing to her elevated white blood cell count. Dr. Forrest recommended getting a 24-hour urine for free cortisol, which can be done in the [facility] in [place] and this can be followed up as an outpatient and also slowly increase her oral intake and she will be going to the Swing bed for continued physical therapy. Job ID: [id number]
--- NOTE | 2018-05-26 09:05 | PRG ---
DATE OF SERVICE: 05/25/2018 SUBJECTIVE: Ms. Blunt is seen by the bedside with family members in the room. She is asking when she is going to go back to her place in [place], coughing a little bit. No chest pain. No abdominal pain. No diarrhea. She is voiding in the commode. OBJECTIVE: VITAL SIGNS: T-max 98.2, blood pressure 112/58, pulse 75, respirations 18, and O2 saturation 97% on 2L nasal cannula. GENERAL: A little bit tachypneic, but does not appear in distress. Oriented. HEENT: Ocular movements conjugate. LUNGS: Symmetric air entry. Faint basilar crackles. HEART: S1 and S2. Regular rate. ABDOMEN: Soft, not distended. No bladder distention. EXTREMITIES: She is able to move extremities. LABORATORY DATA: White cell count is up to 26.5, hemoglobin 8.7, and platelets 335 with 85% neutrophils, 4% bands, 4% lymphocytes, 1% metamyelocytes, and 1% myelocytes. Slight schistocytes noted. The creatinine was 0.58, sodium 139, potassium 3.4, and albumin 2.5. Urinalysis with 0-3 wbc's, protein trace, and C diff antigen toxin negative. The echo with mild mitral regurgitation, tricuspid aortic valve, somewhat thickened aortic leaflets, trace tricuspid regurgitation, EF 65% with diastolic dysfunction. In the last imaging study, we have abdomen and pelvis CT with distended loops of small bowel, adrenal nodules. Chest x-ray with worsening right pleural fluid and basilar atelectases. ASSESSMENT AND DISCUSSION: History of atrial fibrillation, prior small-bowel obstruction, breast cancer, in remission, who is admitted with respiratory symptoms, managed with levofloxacin. She is still a bit hypoxemic and has a worsening pleural fluid and probably she has adrenergic response leading to leukocytosis now in the retrospect. She also has prominent pericardial fat pad, which raises the possibility of hypercortisolism. It does not appear that she has an uncontrolled infectious process at this time, but her situation is somewhat fragile, particularly in the view of the worsening pleural fluid and I do not think she is going to be ready for prime time come tomorrow. The splenectomy probably worsens the neutrophilia in response to the adrenergic stimulus. Job ID: [id number] [facility]
== END 2018-05-25 18:30 | disposition home or self-care (01) | DRG 193 ==
LOC: ERS 11:40 → CCU 15:28 → 2NO 05-13 16:43
PROVIDERS: ADMIT Internal Medicine; ATTEND Internal Medicine
PROC: 0D9670Z Drainage of Stomach with Drainage Device, Via Natural or Artificial Opening (ICD-10-PCS; principal; 2018-05-16)
DX: J18.9 Pneumonia, unspecified organism (principal); I50.33 Acute on chronic diastolic (congestive) heart failure; J96.01 Acute respiratory failure with hypoxia; I31.3 Pericardial effusion (noninflammatory); I24.8 Other forms of acute ischemic heart disease; K56.7 Ileus, unspecified; I48.2 Chronic atrial fibrillation; I25.10 Atherosclerotic heart disease of native coronary artery without angina pectoris; E87.6 Hypokalemia; Z66 Do not resuscitate; E83.39 Other disorders of phosphorus metabolism; E83.42 Hypomagnesemia; E80.6 Other disorders of bilirubin metabolism; I11.0 Hypertensive heart disease with heart failure; Z79.01 Long term (current) use of anticoagulants; Z87.891 Personal history of nicotine dependence; Z85.3 Personal history of malignant neoplasm of breast; Z90.49 Acquired absence of other specified parts of digestive tract; Z82.3 Family history of stroke
CPT/HCPCS: 36415; 71045; 71275; 74019; 74177; 76705; 80048; 80053; 80162; 81003; 81015; 82247; 82248; 82553; 82565; 83605; 83690; 83735; 84100; 84484; 85025; 87324; 87449; 93005; 93306; 94640; 96361; 96365; 96366; 96368; 96375; 96376; C9113; J1160; J1650; J1940; J1956; J2405; J3480; J7050; J7620; Q0162

== ENCOUNTER 2018-08-29 11:31 | Inpatient (IN) | payer MEDICARE, OTHER ==
[2018-08-29 12:44] LABS: Actual Bicarbonate (HCO3a) 20.4 mEq/L (22-28); Analyzer IN Cardio ER; Base Excess (BEa) -2.9 mEq/L (-2.0 to +3.0); CO2 Tension 30.4 mmHg (35.0-45.0); Calcium, Ionized 1.08 mmol/L (1.12-1.30); Carboxyhemoglobin (COHb) 0.3 gm% (0.0-3.0); Hemoglobin (Hb) 10.9 g/dL (12.0-16.0); O2 Tension (PaO2) 61.7 mmHg (> 60.0); pH, Arterial 7.44 (7.35-7.45)
[2018-08-29 12:50] LABS: Hemoglobin 11.2 g/dL (12.0-16.0); Mean Corpuscular HGB CONC 32.1 g/dL (32.0-36.0); Mean Corpuscular Hemoglobin 31.1 pg (27.0-31.0); Mean Corpuscular Volume 96.9 fL (78.0-98.0); Mean Platelet Volume 8.2 fL (7.4-10.4); Platelet Count 244 thou/uL (130-400); RBC Distribution Width 18.2 % (11.5-14.5); Red Blood Cell (RBC) Count 3.61 mill/uL (4.20-5.40)
[2018-08-29 13:09] LABS: Digoxin 1.58 ng/mL (0.8-2.0)
[2018-08-29 13:10] LABS: ALT (SGPT) 51 U/L (8-55); AST (SGOT) 90 U/L (5-34); Albumin 2.2 g/dL (3.4-4.8); Alkaline Phosphatase 110 U/L (40-150); Anion Gap 15 mmol/L (10-20); BUN (Urea Nitrogen) 23 mg/dL (9.8-20.1); Bilirubin, Total 2.2 mg/dL (0.2-1.2); CK (CPK) 2221 U/L (29-168); Calc. Creatinine Clearance 0 mL/min (70-130); Carbon Dioxide 22 mmol/L (23-31); Chloride 106 mmol/L (98-107); Estimated GFR-MDRD 30; Globulin 2.2 g/dL (2.4-3.5); Glucose 101 mg/dL (83-110); Potassium 3.1 mmol/L (3.5-5.1); Protein, Total 4.4 g/dL (6.0-8.3); Sodium 140 mmol/L (136-145)
[2018-08-29 13:10] LABS: Bilirubin Moderate (Negative); Blood, Urine Large (Negative); Clarity CLOUDY (Clear); Glucose, Urine (Dipstick) Negative (Negative); Leukocyte Small (Negative); Nitrite Negative (Negative); Protein, Urine (Dipstick) 30 mg/dL (Neg-Trace); Specific Gravity, Urine 1.026 (1.002-1.036); Urobilinogen 0.2 mg/dL (0.2-1.0)
[2018-08-29 13:12] LABS: WBC/HPF 0-3 HPF (0-3)
[2018-08-29 13:15] LABS: Pathc Cast-AUWi Flag 7.23 (0-2.49); Yeast-AUWi Flag 40.7 (0-25.0)
--- NOTE | 2018-08-29 13:20 | RAD ---
Exam:Right hand 3 views HISTORY: Pain. Injury. Possible fall. COMPARISON: None FINDINGS: Mild bone demineralization. No fracture. No cortical irregularity or periosteal reaction. IMPRESSION: No fracture.
[2018-08-29 13:21] LABS: Band 5 % (5-11); Lymphocytes 10 % (21-51); MDiff Complete? YES; Monocytes 5 % (0-10); Neutrophil 80 % (42-75); Platelet Morphology Comment Appears Adequate; Polychromasia SLIGHT = 2-3 cells (100X) (0-2/hpf); Target Cells SLIGHT = 2-5 cells (100X) (0-1/hpf); White Blood Cell (WBC) Count 17.9 thou/uL (4.8-10.8)
[2018-08-29] MEDS ORDERED: Piperacillin/Tazobactam 4.5 GM VIAL ONE (13:23)
[2018-08-29] MEDS ORDERED: Sodium Chloride 0.9% 100 ML ONE (13:23)
[2018-08-29] MEDS ORDERED: Adacel (T-DAP) 0.5 ML SYRINGE ONE (13:23)
[2018-08-29 13:24] LABS: Bacteria/HPF 4+ HPF (None Seen); Hyaline Casts/LPF 0-3 HYALINE CAST LPF (0-3 Hyaline); Other Casts/LPF None Seen LPF (0-3 Hyaline); Transitional Epithelial 0-3 HPF (0-3)
[2018-08-29 13:30] LABS: CKMB 15.1 ng/mL (0-6.6)
--- NOTE | 2018-08-29 13:33 | RAD ---
PORTABLE CHEST 1 VIEW: Date: 08/29/18 Time: 1237 hours HISTORY: Sepsis. FINDINGS/IMPRESSION: Comparison made with exam of 06/22/18. The heart size is enlarged. The aorta is tortuous. Bibasilar opacities are redemonstrated. No pneumot horaces are identified. Blunting of costophrenic angles again noted. There is no evidence of jose eduardo pu lmonary edema. POS: TPC
--- NOTE | 2018-08-29 13:33 | RAD ---
LEFT HUMERUS TWO VIEWS: HISTORY: Injury. Left arm pain. FINDINGS: The left humerus is intact. POS: TPC
--- NOTE | 2018-08-29 13:34 | RAD ---
LEFT FOREARM 2 VIEWS: Date: 08/29/18 HISTORY: Injury, left forearm pain. FINDINGS/IMPRESSION: The left radius and ulna appear intact. POS: TPC
--- NOTE | 2018-08-29 13:34 | RAD ---
RIGHT FOREARM TWO VIEWS: HISTORY: Injury. Right forearm pain. FINDINGS: The right radius and ulna appear intact. POS: TPC
--- NOTE | 2018-08-29 14:11 | CT ---
CT CERVICAL SPINE WITH CORONAL AND SAGITTAL REFORMATIONS WITHOUT IV CONTRAST: Date: 08/29/18 HISTORY: Injury, neck pain, fall. FINDINGS/IMPRESSION: Degenerative changes are present in the cervical spine. No acute fracture, subluxation, or facet genevieve lignment is identified. POS: TPC
--- NOTE | 2018-08-29 14:16 | CT ---
CT HEAD WITHOUT CONTRAST: Date: 08/29/18 Multiple axial tomograms obtained through the head without IV enhancement. INDICATION: Mental status change. Fall. Comparison made to prior head CT of 08/27/09. FINDINGS: There is a circumscribed mass at base of skull on the right, measuring 2.6 cm. This mass was present on the prior exam, at which time it measured 2.0 cm and was isodense. On today's exam, this mass is h yperdense with areas of internal calcification. This mass is consistent with a meningioma which is en larged and partially calcified since the prior study. This mass has become more dense since the prior exam. I cannot completely exclude some internal hemorrhage. The cortical atrophy is felt to be stable since the prior study. Chronic ischemic white matter change s are also stable in appearance. IMPRESSION: There is a 2.6 cm mass at the base of the skull on the left which abuts the dura to the left of the s smiley, most consistent with meningioma, which was present on the prior study. It has enlarged and beco me more dense, and there are now internal calcifications. Since I cannot completely exclude internal hemorrhage, recommend short-term follow-up to confirm stability. Findings discussed with the ER physician at the time of dictation. CODE CR. POS: GA
--- NOTE | 2018-08-29 14:58 | CT ---
EXAM: CT chest, abdomen, and pelvis without IV contrast CT thoracic and lumbar spine HISTORY: Injury after a fall. Patient complains of pelvic pain and bilateral arm pain as well as neck pain. COMPARISON: CT abdomen and pelvis on 05/17/2018 at 01/06/2012 as well as CTA chest on 05/12/2018 FINDINGS: This examination is limited secondary to the lack of intravenous contrast which limits evaluation of the parenchymal organs and vascular structures. Lungs: Consolidation at each lung base probably attributable to passive atelectasis. Calcified granul omata at the right lung base are again present. Pleura: Small to moderate size right and small left pleural effusions are noted. These pleural effusi ons have increased from recent study on 05/17/2018. Lymph nodes: No enlarged lymph nodes are seen in this nonenhanced CT scan exam. Mediastinum: The heart remains enlarged, and there is prominence of pericardial fat including promine nce of fat in the interatrial septal region. These findings are unchanged when compared to prior exam as well as study in 2012. A small pericardial effusion is identified. Dense vascular calcifications are again seen in the coronary arteries and involving the thoracic aort a. This examination is performed without IV contrast, but there is no mediastinal hematoma on this exam, and the thoracic aorta is normal in caliber. Chest wall: Left mastectomy. There is partial visualization of subcutaneous edema involving the medial aspect of the right upper e xtremity. There is a radiopaque density extending into the soft tissues at this level. This may represent a peripheral intravenous catheter with associated adjacent gas, clinical correlation is rec ommended to ensure this does not represent a radiopaque foreign body. Vessels: Gas is seen within the venous structures in the upper chest probably related to placement of peripheral intravenous catheter. Gas is also seen just lateral to the right proximal humerus which may be related to gas within vessels; although, laceration overlying this region cannot be entirely e xcluded. This would be better evaluated clinically. Liver: Diminished attenuation likely attributable to fatty infiltration. Gallbladder: Postcholecystectomy changes. Pancreas: Fatty replaced. 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 Adrenal glands: Stable adrenal nodules bilaterally unchanged from study in 2012. Kidneys:No renal calculus or acute obstruction.No solid or cystic mass noted on this nonenhanced C T scan exam. Bowel: Normal in caliber. Postsurgical changes of the rectosigmoid junction are noted with additional postsurgical changes of loops of bowel within the abdomen. Urinary Bladder: Salgado catheter is is in place, and urinary bladder is completely decompressed. There is evidence of prior hysterectomy. Adenopathy:No lymphadenopathy within the abdomen or pelvis. Peritoneum: There is presacral inflammatory changes seen which is overall nonspecific. No significant free fluid is seen, and there is no free intraperitoneal gas identified in the abdomen or pelvis. No enlarged lymph nodes are seen by CT size criteria. Abdominal aorta: Dense vascular calcifications are seen in the abdominal aorta and involving the anuradha c arteries. Abdominal wall: There is mild diffuse subcutaneous edema greatest involving the posterolateral aspect right lower chest and upper abdomen could be related to hemorrhage and contusion in this region from patient's recent fall. Osseous structures: There are remote bilateral rib fractures. No obvious acute rib fracture is apprec iated. No pelvic fracture is seen. There is offset of the cortices of the mid sternum, but there is irregularity along the soft tissue with findings suggestive of motion artifact at this level and this is not thought to represent a fracture. There is certainly no pre or post sternal hematoma seen. CT thoracic and lumbar spine: The vertebral body heights are within normal limits. No fracture is visualized. There is a prominent Schmorl's node inferior endplate of the T12 vertebral body. There is grade 1 anterolisthesis of L4 on L5. Vacuum phenomenon is seen in the intervertebral disc lower lumbar spine scattered degenerative changes seen throughout the thoracic and lumbar spine. No obvious fracture is visualized. IMPRESSION: 1. Small to moderate right and small left pleural effusions with associated atelectasis. Pleural effu sions have increased since study on 05/12/2018. 2. Prominent lipomatous hypertrophy of the interatrial septum and fat surrounding the heart. This is seen on prior exams. Small pericardial effusion is also again present. The heart is enlarged. 3. Fatty infiltration liver. 4. Postcholecystectomy changes. 5. Stable nodular prominence of each adrenal gland unchanged from study in 2011. 6. Postsurgical changes of the abdomen. There is a small amount of presacral inflammatory changes glo ntified which are of uncertain etiology. Similar findings but to a slightly greater degree were seen on study of 05/17/2018. 7. Generalized subcutaneous soft tissue swelling greater involving the posterolateral right lower del[address] st and upper abdomen may represent contusion or hemorrhage in the subcutaneous soft tissues. No discrete measurable hematoma is present. Moderate. Dense vascular calcification. 8. No acute fracture thoracic or lumbar spine. There is grade 1 anterolisthesis of L4 on L5. 9. No additional acute findings are seen in the chest, abdomen, or pelvis. 10. Above findings discussed with Dr. Potter in the emergency department on 08/29/2018 at 1454 hours.
[2018-08-29] MEDS ORDERED: Pharmacy to Dose 1 EACH VANCOMYCIN IVPB PRN (15:40)
[2018-08-29] MEDS ORDERED: Acetaminophen 325 MG TAB PO PRN (15:41)
[2018-08-29] MEDS ORDERED: Acetaminophen 650 MG Suppository PR PRN (15:41)
[2018-08-29] MEDS ORDERED: Bisacodyl 5 MG TAB PO PRN (15:41)
[2018-08-29 16:21] LABS: Troponin I 0.391 ng/mL (< 0.028)
[2018-08-29] MEDS ORDERED: Albumin 5% 250 ML ONE (16:27)
[2018-08-29 16:55] VITALS: BMI 24.5
--- NOTE | 2018-08-29 16:57 | HP ---
PRIMARY CARE PROVIDER: Joshua Maldonado DO CLARIFIER: Dylan Gutierrez MD PULP BLEACHER: Meg Seo MD CHIEF COMPLAINT: Fall. HISTORY OF PRESENT ILLNESS: Ms. Blunt is a pleasant 83-year-old lady, who was seen at [facility] on August 29, 2018. The patient is unable to provide any significant history. Collateral history was obtained from the patient's family by the bedside, discussion with emergency room physician, and review of medical records. Ms. Blunt was hospitalized at [facility] on the to 25 May of this year for community-acquired pneumonia, ileus, and acute respiratory failure with hypoxemia. She was discharged to [facility]. Her family reports that she was subsequently discharged home, where she lives alone. She ambulates with a walker. She reportedly had an episode where she became confused and was found to have digoxin toxicity. Digoxin was held for a week and subsequently started on a lower dose. Otherwise, she has been getting home health and things have been uneventful. Yesterday, she was seen by her home health provider. The patient told the provider that she thought she had urinary tract infection. Yesterday evening, she told her daughter that her legs felt weak. Today morning, home health could not get in touch with her to go home to do blood work. They contacted the patient's family. She was last noted to be fine around 7:00 a.m. today. Her son went to see her around 10:00 a.m. when home health could not get in touch. The patient was found lying on the floor. Subsequently, taken to the emergency room. REVIEW OF SYSTEMS: Could not be completed secondary to patient's nonverbal status. PAST MEDICAL HISTORY: Community-acquired pneumonia, atrial fibrillation, diverticulosis, partial small-bowel obstruction, left-sided breast cancer. PAST SURGICAL HISTORY: Hemicolectomy with reanastomosis in 2009, radical mastectomy on the left, cholecystectomy, appendectomy, hysterectomy, splenectomy, and colonoscopy. ALLERGIES: NO KNOWN DRUG ALLERGIES. CURRENT MEDICATIONS: 1. Zofran 4 mg every 6 hours as needed. 2. Cholestyramine 4 to 8 g daily as needed. 3. Digoxin 125 mcg daily. 4. Cartia XT 180 mg daily. 5. Pantoprazole 40 mg daily. 6. Mirtazapine 7.5 mg at bedtime. 7. Rivaroxaban 20 mg daily. 8. Vitamin B12 of 2500 mcg daily. SOCIAL HISTORY: No history of tobacco use, alcohol use, or recreational drug use. FAMILY HISTORY: No family history of premature coronary artery disease. CODE STATUS: I discussed her code status. She is chemical code only. PHYSICAL EXAMINATION: GENERAL: On examination, Ms. De Dios is sleepy, but arousable, not in acute distress. VITAL SIGNS: Blood pressure is 87/48, pulse 66, respiratory rate 26, and critical temperature of 97. Her lowest critical temperature was 95.5 in the emergency room. EYES: No scleral icterus. No conjunctival pallor. ENT: Dry mucosal membranes. No oropharyngeal erythema or exudates. NECK: Supple, nontender. Trachea is midline. RESPIRATORY: Accessory muscles of breathing are not active. Chest wall movements are symmetric bilaterally. LUNGS: Clear to auscultation without wheeze, rhonchi, or crepitations. CARDIOVASCULAR: S1 and S2 are heard, irregular. Peripheral pulses palpable. NEUROLOGIC: Full neurologic examination not possible secondary to the patient's noncooperation. No facial droop. Deep tendon reflexes 2+. Plantars downgoing bilaterally. MUSCULOSKELETAL: The patient is moving all 4 extremities. SKIN: Multiple bruises. LYMPHATIC: No cervical lymphadenopathy. PSYCHIATRIC: Normal mood. The patient is oriented to person only, not to place or time. LABORATORY DATA: Ms. Perez labs and investigations were reviewed. I reviewed her electrocardiogram, which shows atrial fibrillation with controlled ventricular response, no ST changes to suggest an acute coronary syndrome. I also reviewed her chest x-ray, which did not show any pulmonary infiltrates. She had CT scan of the chest, abdomen, and pelvis, which showed [id number] right and small left pleural effusions with associated atelectasis. She has prominent lipomatous hypertrophy of the interatrial septum and fat surrounding the heart, also seen on prior exams. She has fatty infiltration of the liver, post cholecystectomy changes, and stable nodular prominence of each adrenal gland. She has generalized subcutaneous soft tissue swelling involving the posterolateral right lower chest and upper abdomen, which represents contusion or hemorrhage in the subcutaneous tissues. She had noncontrast CT scan of the brain, which showed a 2.6 cm mass at the base of the skull on the left, which abuts the dura to the left of the sella, most consistent with meningioma, which was present on prior study. It has enlarged and become more dense within internal calcifications when compared to CT scan from August 2009. Radiologist could not completely exclude internal hemorrhage and recommend short-term followup to confirm stability. X-rays of the bilateral forearm and left humerus did not show any fractures. CT scan of the cervical spine did not show any acute fracture. X-rays of the right hand did not show any fracture. She has leukocytosis with 17,900 white cells, of which 80% are neutrophils, normocytic anemia with hemoglobin 11.2, normal platelet count, normal sodium, decreased potassium of 3.1, elevated blood urea nitrogen of 23, elevated creatinine 1.61, last known creatinine 0.73 on July 20, 2018, elevated total bilirubin of 2.2, elevated AST of 90, normal ALT, normal alkaline phosphatase, elevated CK of 2221, and decreased albumin of 2.2. Lactic acid is elevated at 2.8. Troponin I is pending. Urinalysis is positive for small amount of leukocyte esterase and negative for urine bilirubin. Digoxin level is in the therapeutic range at 1.58. ASSESSMENT AND PLAN: Ms. Blunt is a pleasant 83-year-old lady, who was seen at [facility] on August 29, 2018. Her problem list includes: 1. Acute metabolic encephalopathy: Ms. Blunt is presenting with altered mental status, most likely secondary to sepsis. She will be admitted to the hospital for further management. At baseline, she is reportedly alert and oriented x3. 2. Sepsis: Her presentation meets the criteria for sepsis. She will be treated with broad-spectrum antibiotics in the form of vancomycin and Zosyn. We will await cultures. 3. Rhabdomyolysis: The patient was on the ground for an unknown period of time. She will receive intravenous fluids. CK level will be rechecked. 4. Hypokalemia: We will replace potassium. 5. Acute kidney injury: Likely secondary to combination of sepsis and rhabdomyolysis. We will provide intravenous hydration and recheck her creatinine. 6. Abnormal liver function tests: She has elevated total bilirubin and AST, normal ALT and alkaline phosphatase. We will recheck LFTs. Abnormal LFTs could be secondary to sepsis. 7. Chronic atrial fibrillation: We will hold rivaroxaban for now, since there is concern about bleeding into meningioma. Neurosurgery Service has been consulted by emergency room physician for opinion. Many thanks for allowing me to participate in the patient's care. Please feel free to contact me with any questions or concerns. LEVEL OF RISK: High. LEVEL OF COMPLEXITY: High. Please note that the patient is being admitted to critical care unit in case she needs vasopressors. Job ID: [id number] MTDD
[2018-08-29 17:05] LABS: Actual Bicarbonate (HCO3a) 18.7 mEq/L (22-28); Base Excess (BEa) -6.1 mEq/L (-2.0 to +3.0); CO2 Tension 34.4 mmHg (35.0-45.0); Calcium, Ionized 1.04 mmol/L (1.12-1.30); Carboxyhemoglobin (COHb) 1.7 gm% (0.0-3.0); Hemoglobin (Hb) 10.4 g/dL (12.0-16.0); Potassium - ABG Lab 2.45 mmol/L (3.70-5.30); pH, Arterial 7.35 (7.35-7.45)
[2018-08-29 17:07] LABS: O2 Tension (PaO2) 38.3 mmHg (> 60.0)
[2018-08-29] MEDS ORDERED: NS 0.9% w/ 40 MEQ KCL 1,000 ML IV SCH (17:15)
--- NOTE | 2018-08-29 17:32 | PDOC.OP ---
Operative Note - Operative Note Operative Note: INDICATION: Hypotension refractory to fluid resuscitation PROCEDURE SENIOR LOGISTICS MANAGER: Luisito Pedroza DO ATTENDING PHYSICIAN: Harry Michel MD CONSENT: Consent was obtained from [facility] prior to the procedure. Indications, risks, and benefits were explained at length. PROCEDURE SUMMARY: A time out was performed. My hands were washed immediately prior to the procedure. I wore a surgical cap, mask with protective eyewear, full gown and sterile gloves throughout the procedure. The patient was placed in Trendelenburg position. Right chest region was prepped using chlorhexidine scrub and draped in sterile fashion using a full drape and sterile probe cover employed. The medial and lateral heads of the sternocleidomastoid muscle were identified as was the carotid pulse. The Internal Jugular vein was identified using the ultrasound. Anesthesia was achieved over the vein using 1% lidocaine. Using real-time out of plane guidance, the introducer needle was inserted into the Internal Jugular vein under direct ultrasound visualization. Venous blood was withdrawn. The syringe was removed and a guidewire was advanced into the introducer needle. The guidewire was visualized in the Internal Jugular Vein by ultrasound. A small incision was made at the skin surface with a scalpel and the introducer needle was exchanged for a dilator over the guidewire. After appropriate dilation was obtained, the dilator was exchanged over the wire for a triple lumen central venous catheter. The wire was removed and the catheter was sutured in place at 20 cm. A sterile dressing was placed over the catheter at the insertion site. The patient tolerated the procedure without any hemodynamic compromise. At time of procedure completion, all ports aspirated and flushed properly. Post-procedure chest x-ray shows appropriate placement. Estimated blood loss is minimal.
[2018-08-29 17:49] LABS: Lactic Acid 2.5 mmol/L (0.5-2.2)
--- NOTE | 2018-08-29 17:52 | CON ---
DATE OF CONSULTATION: 08/29/2018 HISTORY OF PRESENT ILLNESS: Va Blunt is an 83-year-old female, who apparently was brought in the ER after she sustained a fall. She is now being transferred to the ICU with a diagnosis of urosepsis, hypotension. She has received 3 L of normal saline in the ER. Blood pressure is 90 systolic. She is awake, alert, and responsive. During the last admission, 3 months ago, she saw Dr. Gutierrez with a diagnosis of right-sided pneumonia and severe deconditioning. There is a granddaughter and [id number] present at the bedside, who apparently take care for her in [place] along with home health. She is a former smoker. PAST MEDICAL HISTORY: Otherwise pertinent for previous diverticulitis, chronic atrial fibrillation, cardiomegaly, constipation, hypertension, and breast cancer. PAST SURGICAL HISTORY: Lap colectomy, left radical mastectomy, cholecystectomy, appendix, hysterectomy, splenectomy, and colonoscopy. HOME MEDICATIONS: 1. Xarelto 20. 2. Zofran. 3. Imodium. 4. Cardizem CD 180. 5. Dig 0.25. ALLERGIES: NONE. PREVIOUS UPPER GI BLEED. ENDOSCOPY PERFORMED SEVERAL TIMES SEVERAL YEARS AGO. REVIEW OF SYSTEMS: Otherwise unremarkable. PHYSICAL EXAMINATION: GENERAL: She is hypotensive, but alert, responsive, complains of abdominal pain. VITAL SIGNS: Sats are 95, blood pressure 90/60, pulse 80, and respiratory rate 20. CHEST: Bilateral rhonchi and crackles. CARDIAC: Normal S1 and S2. No gallops. ABDOMEN: Distended, but soft. EXTREMITIES: Trace edema. Ecchymosis of the lower extremity. LABORATORY DATA: White blood cell count 17,000, H and H 9 and 35, and platelet count is normal. Her pO2 of 61, pCO2 37.4 on room air. Bicarb is 22. Bilirubin is 2.2. Lactic acid is 2.8. AST is 90. Creatine kinase is 2221. CK-MB is elevated at and albumin is 2.2. Urine shows moderate bilirubin, large blood, protein high, 4+ bacteria, wbc's minimal. IMPRESSION: 1. Hypotension, probably urinary tract infection. 2. Chronic abdominal pain. 3. Congestive heart failure, pericardial effusion, atrial fibrillation, advanced age, deconditioning, abnormal LFT, and breast cancer. PLAN: She will be transferred to the ICU. We will continue Zosyn and vancomycin, adjust for renal failure. Stress dose of steroids has been given after Cortisol level has been ordered. Central line being inserted given. This is a 45-minute critical time. We will follow. Job ID: [id number]
--- NOTE | 2018-08-29 17:52 | RAD ---
Frontal radiograph chest: 08/29/2018 at 5:13 PM COMPARISON: 08/29/2018 at 12:37 PM HISTORY: Trauma, central line placement FINDINGS: Shallow inspiration limits assessment of the lung bases. Persistent nonspecific increased d ensity is noted within the right lung base suggesting prominent cardiac silhouette and right pleural fluid. Right-sided vascular catheter present, distal tip overlying the expected region of the right atrium. Mild increased density in the left base suggest left pleural fluid. No pneumothorax. Lungs are better assessed on CT examination also performed 08/29/2018 IMPRESSION: Right-sided vascular catheter. Increased density in both lung bases as detailed above.
[2018-08-29] MEDS: Hydrocortisone Sod Succ/PF 100 mg/2 ml Vial IVP SCH (18:37)
[2018-08-29] MEDS: Piperacillin/Tazobactam 3.375 GM in Sodium Chloride 0.9% 100 ML IVPB SCH (18:37)
[2018-08-29] MEDS ORDERED: Norepinephrine 8 MG/0.9% NS 250 ML ONE (18:51)
[2018-08-29 18:54] LABS: Troponin I 0.446 ng/mL (< 0.028)
[2018-08-29] MEDS ORDERED: Lorazepam 2 MG/ML VIAL ONE (20:50)
[2018-08-29] MEDS ORDERED: Lorazepam 2 MG/ML VIAL SLOW IVP PRN (20:53)
[2018-08-29] MEDS ORDERED: Morphine 2 MG/ML SYRINGE SLOW IVP PRN (20:54)
[2018-08-29 22:15] VITALS: BP 66/40; TEMP 97
--- NOTE | 2018-08-29 23:13 | PDOC.EVN ---
Event Note - Event Note Event Note: Visited patient and had discussion with family regarding goals of care , as per next of jarett they dont see any bennefit in continuing medical treatment and had decided for the patient to be placed in comfort care, we will follow Family decisions, and place pt comfortable.
[2018-08-30] MEDS: Hydrocortisone Sod Succ/PF 100 mg/2 ml Vial IVP SCH (00:12)
[2018-08-30] MEDS: Piperacillin/Tazobactam 3.375 GM in Sodium Chloride 0.9% 100 ML IVPB SCH (00:12)
[2018-08-30] MEDS ORDERED: Vancomycin HCl 1 GM in Premix Bag 1 BAG IVPB SCH (14:00)
--- NOTE | 2018-09-04 02:07 | DIS ---
DATE OF ADMISSION: 08/29/2018 DATE OF DISCHARGE: 08/29/2018 PRIMARY CARE PROVIDER: Joshua Maldonado DO DIAGNOSES: 1. Sepsis. 2. Bacteremia with Clostridium perfringens. 3. Urinary tract infection due to beta-hemolytic Streptococcus. 4. Septic shock. CONSULTATIONS DURING THIS HOSPITALIZATION: Pulmonary and Critical Care Medicine, Harry Michel MD. HOSPITAL COURSE: Ms. Blunt is an 83-year-old lady, who was admitted to [facility] on August 29, 2018, for septic shock. Please refer to my history and physical note dated August 29, 2018. She received intravenous antibiotics. She had central line placed for vasopressors. At the time of admission, the patient was chemical code only. Following admission, her family discussed with hospitalist patient coordinator front desk and changed her code status to do not attempt resuscitation. They also wished for comfort measures only. At 2330 hours, the patient had agonal and gasping breathing and heart rate of 31. She at 2355 hours. Venous blood cultures taken at the time of admission grew Clostridium perfringens and coagulase-negative Staphylococcus in 1/2 cultures. Urine culture grew beta-hemolytic Streptococcus. Many thanks for allowing me to participate in your patient's care. Please feel free to contact me with any questions or concerns. Job ID: [id number]
== END 2018-08-29 23:55 | disposition expired | DRG 871 ==
LOC: ERS 11:31 → CCU 16:26 → T4-B 22:04
PROVIDERS: ADMIT Internal Medicine; ATTEND Internal Medicine
PROC: 02H633Z Insertion of Infusion Device into Right Atrium, Percutaneous Approach (ICD-10-PCS; principal; 2018-08-29)
PROC: 3E033XZ Introduction of Vasopressor into Peripheral Vein, Percutaneous Approach (ICD-10-PCS; 2018-08-29)
DX: A41.1 Sepsis due to other specified staphylococcus (principal); G93.41 Metabolic encephalopathy; R65.21 Severe sepsis with septic shock; I31.3 Pericardial effusion (noninflammatory); N17.9 Acute kidney failure, unspecified; M62.82 Rhabdomyolysis; J98.11 Atelectasis; N39.0 Urinary tract infection, site not specified; I48.2 Chronic atrial fibrillation; S09.90XA Unspecified injury of head, initial encounter; W04.XXXA Fall while being carried or supported by other persons, initial encounter; D32.9 Benign neoplasm of meninges, unspecified; I11.0 Hypertensive heart disease with heart failure; I50.9 Heart failure, unspecified; A41.89 Other specified sepsis; B95.4 Other streptococcus as the cause of diseases classified elsewhere; Z85.3 Personal history of malignant neoplasm of breast; Z90.12 Acquired absence of left breast and nipple; K57.90 Diverticulosis of intestine, part unspecified, without perforation or abscess without bleeding; K76.0 Fatty (change of) liver, not elsewhere classified; S20.211A Contusion of right front wall of thorax, initial encounter; D32.0 Benign neoplasm of cerebral meninges; E87.6 Hypokalemia; Z87.891 Personal history of nicotine dependence; Z51.5 Encounter for palliative care; Z90.49 Acquired absence of other specified parts of digestive tract; Z90.710 Acquired absence of both cervix and uterus; Z90.81 Acquired absence of spleen; W19.XXXA Unspecified fall, initial encounter; Y92.019 Unspecified place in single-family (private) house as the place of occurrence of the external cause
CPT/HCPCS: 36415; 51702; 70450; 71045; 71250; 72125; 74177; 80053; 80162; 81003; 81015; 82533; 82550; 82553; 82805; 83605; 84484; 85025; 87040; 87076; 87086; 90471; 90715; 93005; 94760; 96360; 96361; 96365; 96367; 99292; J1720; J2060; J2270; J2543; J3370; J3480; J3490; P9045